=== PATIENT | female | born 1945 | race Caucasian/White ===

== ENCOUNTER 2018-04-20 10:56 | Emergency (ER) | payer OTHER ==
[2018-04-20] MEDS ORDERED: NA CHLORIDE 0.9% 1,000 ML ONE (11:10)
--- NOTE | 2018-04-20 11:14 | EDPHYS ---
Physician Documentation [facility] Name: Tennille Rey Age: 72 yrs Sex: Female : 1945 Arrival Date: 04/20/2018 Time: 10:57 Bed 3 Private MD: ED Physician Collins Bojorquez HPI: 04/20 11:09 This 72 yrs old Female presents to ER via Wheelchair with complaints of anirudh Headache - Abnormal MRI. 11:09 The patient complains of pain to the forehead, left frontal area, left temporal area, anirudh right frontal area and right temporal area. The patient describes the headache as constant, a pressure. Onset: The symptoms/episode began/occurred 14 day(s) ago. Associated signs and symptoms: The patient has no apparent associated signs or symptoms. Severity of symptoms: At its worst the pain was mild, moderate, in the emergency department the pain is unchanged. Headache History: Denies prior headaches. The symptoms are alleviated by nothing. the symptoms are aggravated by nothing. The patient has not experienced similar symptoms in the past, but family has similar symptoms, but friend has similar symptoms. Historical: - Allergies: 11:04 Codeine; iw - Home Meds: 11:04 Omeprazole Oral [Active]; elavil [Active]; statin [Active]; iw - PSHx: 11:04 breast augmentation; Appendectomy; ; Bladder suspension; iw - Immunization history:: Adult Immunizations unknown. - Ebola Screening: : Patient negative for fever greater than or equal to 101.5 degrees Fahrenheit, and additional compatible Ebola Virus Disease symptoms Patient denies exposure to infectious person Patient denies travel to an Ebola-affected area in the 21 days before illness onset No symptoms or risks identified at this time. - Family history:: not pertinent. - Social history:: Smoking status: Patient/guardian denies using tobacco. ROS: 11:09 Constitutional: Negative for fever, chills, and weight loss, Eyes: Negative for injury, anirudh pain, redness, and discharge, ENT: Negative for injury, pain, and discharge, Neck: Negative for injury, pain, and swelling, Cardiovascular: Negative for chest pain, palpitations, and edema, Respiratory: Negative for shortness of breath, cough, wheezing, and pleuritic chest pain, Abdomen/GI: Negative for abdominal pain, nausea, vomiting, diarrhea, and constipation, Back: Negative for injury and pain, : Negative for injury, bleeding, discharge, and swelling, MS/Extremity: Negative for injury and deformity, Skin: Negative for injury, rash, and discoloration, Neuro: Negative for headache, weakness, numbness, tingling, and seizure, Psych: Negative for depression, anxiety, suicide ideation, homicidal ideation, and hallucinations, Allergy/Immunology: Negative for hives, rash, and allergies, Endocrine: Negative for neck swelling, polydipsia, polyuria, polyphagia, and marked weight changes, Hematologic/Lymphatic: Negative for swollen nodes, abnormal bleeding, and unusual bruising. 11:12 Neuro: Positive for weakness, of the left leg. anirudh Exam: 11:09 Constitutional: This is a well developed, well nourished patient who is awake, alert, anirudh and in no acute distress. Head/Face: Normocephalic, atraumatic. Eyes: Pupils equal round and reactive to light, extra-ocular motions intact. Lids and lashes normal. Conjunctiva and sclera are non-icteric and not injected. Cornea within normal limits. Periorbital areas with no swelling, redness, or edema. ENT: Nares patent. No nasal discharge, no septal abnormalities noted. Tympanic membranes are normal and external auditory canals are clear. Oropharynx with no redness, swelling, or masses, exudates, or evidence of obstruction, uvula midline. Mucous membranes moist. Neck: Trachea midline, no thyromegaly or masses palpated, and no cervical lymphadenopathy. Supple, full range of motion without nuchal rigidity, or vertebral point tenderness. No Meningismus. Chest/axilla: Normal chest wall appearance and motion. Nontender with no deformity. No lesions are appreciated. Cardiovascular: Regular rate and rhythm with a normal S1 and S2. No gallops, murmurs, or rubs. Normal PMI, no JVD. No pulse deficits. Respiratory: Lungs have equal breath sounds bilaterally, clear to auscultation and percussion. No rales, rhonchi or wheezes noted. No increased work of breathing, no retractions or nasal flaring. Abdomen/GI: Soft, non-tender, with normal bowel sounds. No distension or tympany. No guarding or rebound. No evidence of tenderness throughout. Back: No spinal tenderness. No costovertebral tenderness. Full range of motion. Skin: Warm, dry with normal turgor. Normal color with no rashes, no lesions, and no evidence of cellulitis. MS/ Extremity: Pulses equal, no cyanosis. Neurovascular intact. Full, normal range of motion. Neuro: Awake and alert, GCS 15, oriented to person, place, time, and situation. Cranial nerves II-XII grossly intact. Motor strength 5/5 in all extremities. Sensory grossly intact. Cerebellar exam normal. Normal gait. Psych: Awake, alert, with orientation to person, place and time. Behavior, mood, and affect are within normal limits. 11:12 Radiologist reports: see mri report [facility] Vital Signs: 11:01 BP 131 / 84; Pulse 85; Resp 16 S; Temp 98.2; Pulse Ox 97% ; iw 11:26 BP 128 / 81; Pulse 79; Resp 16; Pulse Ox 98% on R/A; hb 12:25 BP 121 / 68; Pulse 72; Resp 18; Pulse Ox 99% on R/A; ph 14:00 BP 122 / 64; Pulse 73; Resp 18; Temp 97.8; Pulse Ox 98% on R/A; ph MDM: 10:57 Patient medically screened. [facility] 04/20 10:59 Order name: Basic Metabolic Panel; Complete Time: 12:26 [facility] 04/20 10:59 Order name: BNP; Complete Time: 12:26 [facility] 04/20 10:59 Order name: CBC with Diff; Complete Time: 12:26 [facility] 04/20 10:59 Order name: Ckmb; Complete Time: 12:26 [facility] 04/20 10:59 Order name: CPK; Complete Time: 12:26 [facility] 04/20 10:59 Order name: LFT's; Complete Time: 12:26 [facility] 04/20 10:59 Order name: Magnesium; Complete Time: 12:26 [facility] 04/20 10:59 Order name: PT-INR; Complete Time: 12:26 [facility] 04/20 10:59 Order name: Ptt, Activated; Complete Time: 12:26 [facility] 04/20 10:59 Order name: Troponin (emerg Dept Use Only); Complete Time: 12:26 [facility] 04/20 10:59 Order name: XRAY Chest (1 view); Complete Time: 12:26 [facility] 04/20 10:59 Order name: EKG; Complete Time: 11:00 [facility] 04/20 10:59 Order name: Cardiac monitoring; Complete Time: 11:16 [facility] 04/20 10:59 Order name: EKG - Nurse/Tech; Complete Time: 11:16 [facility] 04/20 10:59 Order name: IV Saline Lock; Complete Time: : [facility] 04/20 10:59 Order name: Labs collected and sent; Complete Time: 11: [facility] 04/20 10:59 Order name: O2 Per Protocol; Complete Time: : [facility] 04/20 10:59 Order name: O2 Sat Monitoring; Complete Time: : [facility] 04/20 10:59 Order name: NPO; Complete Time: 12:23 anirudh Administered Medications: 11:11 Drug: NS 0.9% 1000 ml Route: IV; Rate: 125 ml/hr; Site: left antecubital; hb 11:40 Drug: Keppra 1000 mg Route: IV; Rate: per protocol; Site: left antecubital; ph Disposition: 04/20/18 11:[address] [facility]. Diagnosis are Headache, Traumatic subdural hemorrhage - 2.4 cm thick, 1.2 cm shift. - Reason for transfer: Higher level of care. - Accepting physician is to [facility] neuro icu. - Condition is Stable. - Problem is new. - Symptoms have improved. Signatures: Dispatcher [employer] EDCollins Barrett MD MD cha Williams, Irene, RN GUSTAVO Sonal Alarcon RN RN ph Baxter, Heather, RN RN Corrections: (The following items were deleted from the chart) 14:52 11:14 04/20/2018 11:[address] [facility]. Diagnosis is ph Headache; Traumatic subdural hemorrhage - 2.4 cm thick, 1.2 cm shift. Reason for transfer: Higher level of care. Accepting physician is to [facility] neuro icu. Condition is Stable. Problem is new. Symptoms have improved. anirudh
--- NOTE | 2018-04-20 11:14 | ER ---
Nurse's Notes [facility] Name: Tennille Rey Age: 72 yrs Sex: Female : 1945 Arrival Date: 04/20/2018 Time: 10:57 Bed 3 Private MD: Diagnosis: Headache;Traumatic subdural hemorrhage-2.4 cm thick, 1.2 cm shift Presentation: 04/20 10:58 Presenting complaint: Patient states: had MRI today, s/p fall one month ago, end of iw February, pt has had headaches and difficulty walking since then, MRI subdural hematoma with 1.2 cm right to left shift. Transition of care: patient was not received from another setting of care. Onset of symptoms was February 2018. Risk Assessment: Do you want to hurt yourself or someone else? Patient reports no desire to harm self or others. Initial Sepsis Screen: Does the patient meet any 2 criteria? No. Patient's initial sepsis screen is negative. Does the patient have a suspected source of infection? No. Patient's initial sepsis screen is negative. Care prior to arrival: None. 10:58 Method Of Arrival: Wheelchair iw 10:58 Acuity: ADRIÁN 2 iw Triage Assessment: 19:29 Pain: Also complains of. ph Historical: - Allergies: 11:04 Codeine; iw - Home Meds: 11:04 Omeprazole Oral [Active]; elavil [Active]; statin [Active]; iw - PSHx: 11:04 breast augmentation; Appendectomy; ; Bladder suspension; iw - Immunization history:: Adult Immunizations unknown. - Ebola Screening: : Patient negative for fever greater than or equal to 101.5 degrees Fahrenheit, and additional compatible Ebola Virus Disease symptoms Patient denies exposure to infectious person Patient denies travel to an Ebola-affected area in the 21 days before illness onset No symptoms or risks identified at this time. - Family history:: not pertinent. - Social history:: Smoking status: Patient/guardian denies using tobacco. Screenin:18 Abuse screen: Denies threats or abuse. Denies injuries from another. Nutritional hb screening: No deficits noted. Tuberculosis screening: No symptoms or risk factors identified. Fall Risk None identified. Assessment: 11:15 General: Appears in no apparent distress. comfortable, slender, well groomed, Behavior ph is calm, cooperative, appropriate for age, Reports States, " I fell in February and I came here for an MRI because the CT they did recently didn't get my neck. I haven't been feeling bad, I've had a dull headache and I noticed a few days ago that I had some trouble picking up my left leg to put on my slacks but that's all that's been different.". Pain: Complains of pain in head Pain currently is 2 out of 10 on a pain scale. Neuro: Level of Consciousness is awake, alert, obeys commands, Oriented to person, place, time, situation, Mechanic Welder are equal bilaterally Moves all extremities. Full function Gait is steady, Speech is normal, Facial symmetry appears normal, Facial symmetry: tongue is midline, Pupils are PERRLA, Intact Reports headache Denies blurred vision dizziness, difficulty swallowing, diplopia. Cardiovascular: Capillary refill < 3 seconds in bilateral fingers Patient's skin is warm and dry. Respiratory: Airway is patent Respiratory effort is even, unlabored, Denies cough, shortness of breath. GI: Patient currently denies diarrhea, nausea, vomiting. Derm: Skin is intact, is healthy with good turgor, Skin is pink, warm \\T\\ dry. Musculoskeletal: Circulation, motion, and sensation intact. Range of motion: intact in all extremities. 13:10 Reassessment: Patient appears in no apparent distress at this time. Patient and/or ph family updated on plan of care and expected duration. Pain level reassessed. Patient is alert, oriented x 3, equal unlabored respirations, skin warm/dry/pink. Pt resting quietly, awaiting transfer. 13:34 Reassessment: Patient appears in no apparent distress at this time. Patient and/or ph family updated on plan of care and expected duration. Pain level reassessed. Patient is alert, oriented x 3, equal unlabored respirations, skin warm/dry/pink. Report called to Jazmine CHEN at [facility] waiting EMS for transport. Vital Signs: 11:01 BP 131 / 84; Pulse 85; Resp 16 S; Temp 98.2; Pulse Ox 97% ; iw 11:26 BP 128 / 81; Pulse 79; Resp 16; Pulse Ox 98% on R/A; hb 12:25 BP 121 / 68; Pulse 72; Resp 18; Pulse Ox 99% on R/A; ph 14:00 BP 122 / 64; Pulse 73; Resp 18; Temp 97.8; Pulse Ox 98% on R/A; ph ED Course: 10:57 Patient arrived in ED. iw 10:57 Collins Bojorquez MD is Attending Physician. anirudh 11:00 Triage completed. iw 11:02 EKG done, by technical writing lead/mgr. reviewed by Collins Bojorquez MD. at1 11:05 Arm band placed on. hb 11:15 Initial lab(s) drawn, by me, sent to lab. Inserted saline lock: 20 gauge in left ph antecubital area, using aseptic technique. Blood collected. 11:36 X-ray completed. Portable x-ray completed in exam room. Patient tolerated procedure sw well. 11:39 XRAY Chest (1 view) In Process Unspecified. EDMS 12:19 Sonal Alarcon, RN is Primary Nurse. ph 12:25 Patient has correct armband on for positive identification. Placed in gown. Bed in low ph position. Call light in reach. Side rails up X 1. engine monitor on. Pulse ox on. NIBP on. Warm blanket given. 13:35 No provider procedures requiring assistance completed. Patient transferred, IV remains ph in place. Administered Medications: 11:11 Drug: NS 0.9% 1000 ml Route: IV; Rate: 125 ml/hr; Site: left antecubital; hb 11:40 Drug: Keppra 1000 mg Route: IV; Rate: per protocol; Site: left antecubital; ph Outcome: 11:14 ER care complete, transfer ordered by . anirudh 13:35 Transferred by ground EMS to [facility], Transfer form completed. X-rays ph sent w/ patient. 13:35 Condition: stable 13:35 Instructed on the need for transfer. 14:52 Patient left the ED. ph Signatures: Dispatcher [employer] EDMS Collins Bojorquez MD MD cha Williams, Irene, RN RN iw Zulma garrido, medical supply technician EKG Tat1 Sonal Alarcon, GUSTAVO CHEN Lilia Sweeney Heather, GUSTAVO RN hb Corrections: (The following items were deleted from the chart) 11:08 11:01 BP 131 / 84; Resp 16bpm; Spontaneous; iw iw
[2018-04-20] MEDS ORDERED: levETIRAcetam 1,000 MG in NA CHLORIDE 0.9% 100 ML IV ONE (11:15)
[2018-04-20 11:25] LABS: Absolute Lymphocytes (CBC) 1.8 K/uL (0.7-4.9); Absolute Monocytes 0.7 K/uL (0.1-1.3); Absolute Neutrophil 4.4 K/uL (1.8-8.0); Basophils % 0.8 % (0-1.3); Eosinophils % 4.6 % (0-4.4); Lymphocytes % 25.1 % (15.3-44.8); MCH 29.5 pg (27.0-35.0); MCV 90.9 fL (80-100); Monocytes % 9.3 % (3.3-12.3)
[2018-04-20 11:29] LABS: Protime INR 0.97
[2018-04-20 11:36] LABS: Bicarbonate 27 mEq/L (21-31); Glucose Level 107 mg/dL (65-120); Potassium 3.9 mEq/L (3.6-5.0); Sodium Level 140 mEq/L (135-145)
[2018-04-20 11:43] LABS: ALT/SGPT 20 IU/L (10-60); AST/SGOT 24 IU/L (10-42); Albumin 4.2 g/dL (3.2-5.5); Alkaline Phosphatase 51 IU/L (42-121); BUN Blood Urea Nitrogen 20 mg/dL (6-20); Bilirubin Direct 0.1 mg/dL (0-0.2); Bilirubin Total 0.4 mg/dL (0.3-1.2); Creatine Phosphokinase 103 IU/L (22-269); Magnesium 1.8 mg/dL (1.8-2.5); Protein, Total 7.4 g/dL (6.0-8.3)
[2018-04-20 11:45] LABS: CKMB Creatine Kinase MB 1.4 ng/ml (0.3-4.0)
--- NOTE | 2018-04-20 11:46 | RAD REPORT ---
EXAM DESCRIPTION: RAD - Chest Single View - 04/20/2018 11:41 am CLINICAL HISTORY: Chest pain. COMPARISON: None. FINDINGS: Portable technique limits examination quality. The lungs are grossly clear. The heart is normal in size. No displaced fractures.Mildly tortuous thor acic aorta. IMPRESSION: No acute intrathoracic process suspected.
--- NOTE | 2018-04-20 13:19 | EKG ---
Test Date: 2018-04-20 Test Time: 10:57:43 Vice President Of Procurement: ARLIN MEASUREMENT RESULTS: Intervals: Rate: 82 NV: 134 QRSD: 92 QT: 366 QTc: 427 Trezevant: P: 51 NV: 134 QRS: -52 T: 47 INTERPRETIVE STATEMENTS: Normal sinus rhythm Left anterior fascicular block Abnormal ECG No previous ECG available for comparison Electronically Signed On 04-20-18 13:18:56 CDT by Kevin Ruano
== END 2018-04-20 14:52 | disposition short-term general hospital (02) ==
LOC: ER 10:56
DX: S06.5X9A Traumatic subdural hemorrhage with loss of consciousness of unspecified duration, initial encounter (principal); Z88.6 Allergy status to analgesic agent; X58.XXXA Exposure to other specified factors, initial encounter; Y93.9 Activity, unspecified; Y92.9 Unspecified place or not applicable; Y99.9 Unspecified external cause status
CPT/HCPCS: 36415; 71045; 80048; 80076; 82550; 82553; 83735; 83880; 84484; 85025; 85610; 85730; 93005; 96374; 99285; J1953; J7030

== ENCOUNTER 2020-06-30 19:17 | Emergency (ER) | payer OTHER ==
--- OUTSIDE RECORDS SUMMARY | 2020-06-30 19:21 | XMS REPORT | Continuity of Care Document ---
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 Active 04/20/[address] [id number] Active 09/19/20 UPTURED IMPLANT 14 Trip [facility] Gastroesophageal Active Problem 01/28/2019 [place] reflux disease Neuro , (disorder) [facility] [facility] Medications Medication Details Route Status Patient Ordering Order Source Instructions Provider Date Physical Therapy See Active David s Instructions, 2018 Medical [facility], ONCALL, Center Evaluate and Treat 3 times per week for 6 weeks, # 18 ea, 0 Refill(s) Levetiracetam 500 mg = 1 tab, Active 04/23[facility] [place] 500 MG Oral PO, BID, # 14 2018 Medica l Tablet [Keppra] tab, 0 Refill(s) [place] tramadol 50 mg = 1 tab, Active 04/23[facility] hydrochloride 50 PO, Q6H, PRN 2018 Me dical MG Oral Tablet Pain Score 4-6, C enter X 4 day, # 16 tab, 0 Refill(s) Compazine Notes: (Same as: No Longer [facility] Compazine) Active [address] [place] [address] omeprazole 40 mg TAKE 1 CAPSULE Active 04/22[facility] oral delayed BY MOUTH ONCE A 2018 Med ical release capsule DAY 30 MINS Cent er BEFORE MEALS MUST MAKE APPT FOR MORE REFILLS atorvastatin 10 TAKE 1 TABLET BY Active 04/22[facility] mg oral tablet MOUTH DAILY 2018 Medic al [place] amitriptyline 25 TAKE 1 TABLET BY Active 04/22[facility] mg oral tablet MOUTH EVERYDAY 2018 Me dical AT BEDTIME [place] heparin sodium, Notes: porcine No Longer [facility] porcine 2500 heparin Active 2018 [facility] UNT/ML Center Injectable Solution atorvastatin Notes: (Same As: No Longer [facility] Lipitor) Active 2018 Medical [place] remove patch Notes: Remove No Longer [facility] patch 12 hours Active 2018 Medical after Center application each day. Phenergan Notes: Do not [place] give IV push. 2018 Medical (Same as: [place] Phenergan) Phenergan Notes: Do not Inactive [place] give IV push. 2018 Medical (Same as: [place] Phenergan) Lidocaine Notes: Apply [place] Longer [place] Hydrochloride only once for up Active 2017 edical 0.05 MG/MG to 12 hours in a Cent er Transdermal 24-hour period Patch [Lidoderm] (12 hours on and 12 hours off). (Same as: Lidoderm) "Remove old patch before application of new patch" Acetaminophen Notes: [place] acetaminophen Active 2018 Medical 4000 mg/day (4 Center gm/day). (Same as: Tylenol Extra Strength) Tramadol Notes: Not to [place]er [place] exceed Active 2018 Medical 400mg/day. (Same Center As: [facility]) Ondansetron Notes: (Same as: No Longer [facility] Zofran) Active 2018 Medical MEDICATION WASTE Center Product Size: 4 mg Product Wasted: ___ mg pantoprazole Notes: Tablet No Longer [facility] should not be Active 2018 [facility] chewed or [place] crushed. (Same as: Protonix) Zofran Notes: (Same as: Inactive [place] Zofran) 2018 Medical MEDICATION WASTE Center Product Size: 4 mg Product Wasted: 0 mg Fentanyl Notes: (Same as: [place] Longer [place] Sublimaze) Active 2018 [facility] Preservative Center free. Saline Flush Notes: (Same as: No Longer [facility] 0.9% BD Posiflush) Active 2018 Medical [place] sennosides, LONGTERM Notes: (Same as: No Longer 04/21 [facility] Senokot) Active 2018 Medical Center Famotidine 20 mg, Route: Inactive 04/21[facility] [place] IVP, Q12H, 2018 Medical Dosing Weight Center 65.909, kg, Start date: 04/20/18 21:00:00 CDT, Duration: 30 day, Stop date: 05/20/18 9:00:00 CDT Docusate Notes: (Same as: [place] Longer [place] Colace) (Do Not Active 2018 [facility]) Center Ondansetron 4 mg, Route: Inactive 04/21[facility] [place] IVP, ONCE, 2018 Medical Dosing Weight Center 68.182, kg, PRN Nausea & Vomiting, Start date: 04/20/18 20:23:00 CDT Flumazenil 0.2 mg, Route: Inactive 04/21[facility] [place] IVP, PRN, Dosing 2018 Medical Weight 68.182, Center kg, PRN Benzodiazepine Reversal, Initial dose, Start date: 04/20/18 20:23:00 CDT, Duration: 30 day, Stop date: 05/20/18 20:22:00 CDT Naloxone 0.4 mg, Route: Inactive 04/21[facility] [place] IVP, Q2MIN, 2018 Medical Dosing Weight Center 68.182, kg, PRN Narcotic Reversal, Start date: 04/20/18 20:23:00 CDT, Duration: 8 doses or times, Stop date: Limited # of times Fentanyl 25 microgram, Inactive 04/21[facility] Route: IVP, 2018 Medical Q5Min, Dosing Center Weight 68.182, kg, PRN Pain Score 4-6, Priority: Routine, Start date: 04/20/18 20:23:00 CDT, Duration: 4 doses or times, Stop date: Limited # of times glycopyrrolate Route: IV, Drug Inactive 04/21[facility] (ANES) form: INJ, ONCE, 2018 Medical Stop date: [place] 04/20/18 20:11:00 CDT ondansetron Route: IV, Drug Inactive [address] [place] [address] (ANES) form: INJ, ONCE, 2018 Medical Stop date: [place] 04/20/18 20:11:00 CDT neostigmine Route: IV, Drug Inactive [address] [place] [address] (ANES) form: INJ, ONCE, 2018 Medical Stop date: [place] 04/20/18 20:11:00 CDT Ancef Notes: (Same as No Longer [place] Ancef) Active 2018 Medical Center [place] Notes: (Same as: No Longer Timothy miguel Gastelum) Active 2018 Medical MEDICATION WASTE Center Product Size: 4 mg Product Wasted: ___ mg Acetaminophen Notes: Same as No Longer [facility] [place] 325 MG / [place] 325-7.5mg Active 2018 Medical Hydrocodone Do not exceed Cente r Bitartrate 7.5 4gm/day of MG Oral Tablet acetaminophen. [[place] 7.5/325] Labetalol 20 mg, 4 mL, No Longer [place] Route: IVP, Drug Active 2017 Medical form: INJ, [place] Q15Min, Dosing Weight 68.182, kg, PRN Hypertension, Start date: 04/20/18 19:59:00 CDT, Duration: 3 doses or times, Stop date: Limited # of times Hydralazine Notes: (Same as: No Longer [facility] Apresoline) Push Active 2018 Medical over 5 minutes [place] lidocaine (ANES) Route: IV, Drug Inactive [facility] form: INJ, ONCE, 2017 Medical Stop date: [place] 04/20/18 19:47:00 CDT rocuronium Route: IV, Drug Inactive [place] (ANES) form: INJ, ONCE, 2017 Medical Stop date: [place] 04/20/18 19:42:00 CDT propofol (ANES) Route: IV, Drug Inactive 04/21/ [facility] form: INJ, ONCE, 2017 Medical Stop date: [place] 04/20/18 19:42:00 CDT fentaNYL (ANES) Route: IV, Drug Inactive 04/21/ [facility] form: INJ, ONCE, 2017 Medical Stop date: [place] 04/20/18 19:42:00 CDT ceFAZolin (ANES) Route: IV, Drug Inactive 04/21/ [facility] form: INJ, ONCE, 2017 Medical Stop date: [place] 04/20/18 19:22:00 CDT propofol (ANES) Route: IV, Drug Inactive [place] 10 mg form: INJ, Start 2018 Medical date: 04/20/18 [place] 19:08:00 CDT, Stop date: 04/20/18 20:08:00 CDT levETIRAcetam Route: IV, Drug Inactive [place] (ANES) 100 mg form: INJ, Start 2017 M edical date: 04/20/18 [place] 18:55:00 CDT, Stop date: 04/20/18 19:55:00 CDT Isolyte S PH 7.4 Route: IV, Total Inactive 04/20 [place] (ANES) 1000 mL Volume: 1,000, 2017 Me dical Start date: [place] 04/20/18 18:28:00 CDT, Stop date: 04/20/18 19:28:00 CDT Sodium Chloride Route: IV, Total Inactive [place] 0.9% IV (ANES) Volume: 1,000, 2017 Me dical 1000 mL Start date: [place] 04/20/18 18:25:00 CDT, Stop date: 04/20/18 19:25:00 CDT Streptococcus Notes: Shake No Longer [place] pneumoniae well prior to Active 2018 Medical serotype 1 use (Same as: [place] capsular antigen Prevnar 13) diphtheria [id number] protein conjugate vaccine / Streptococcus pneumoniae serotype 14 capsular antigen diphtheria [id number] protein conjugate vaccine / Streptococcus pneumoniae serotype 18C capsular antigen d normal saline 1,000 mL, Rate: No Longer [place] 0.9% IV 1,000 mL 75 ml/hr, Infuse Active 2017 Medical over: 13.3 hr, [place] Route: IV, Dosing Weight 65.909 kg, Total Volume: 1,000, Start date: 04/20/18 15:45:00 CDT, Duration: 30 day, Stop date: 05/20/18 15:44:00 CDT, 1.73, m2 Dextrose 50% 12.5 gm, 25 mL, No Longer [place] Syringe Route: IVP, Drug Active 2017 Medical Form: INJ, [place] Dosing Weight 65.909, kg, PRN, PRN Abnormal Lab Result, Start date: 04/20/18 15:44:00 CDT, Duration: 30 day, Stop date: 05/20/18 15:43:00 CDT Regular Insulin, 60 units) No Longer [place] Human 100 UNT/ML WASTE: F/P - Active 2018 Me dical Injectable Black; E - Center Solution Municipal Trash Bin Stable for 28 days at room temperature Expires in days from Da te Calcium Notes: (Same As: [place] Long[place] Carbonate 500 MG Tums) Calcium Active 2017 M edical Chewable Tablet Carbonate 500 mg Center = 200 mg elemental calcium Dose = mg calcium carbonate ( mg elemental calcium) Calcium Notes: WASTE: No Longer [facility] Gluconate F/P - Sink; E - Active 2018 Medica l [facility] Bin potassium Notes: (Same as: No Longer [facility] phosphate-sodium Phos-NaK) Each Active 2018 Medical phosphate 250 1.5 gm pkt has [address] mg-280 mg-160 mg 250mg oral powder for phosphorous. Mix reconstitution w/2.5oz water and stir. Magnesium Notes: WASTE: No Longer [place] Sulfate F/P - Sink; E - Active 2018 Medical [facility] Bin Magnesium Oxide Notes: (Same as: No Longer 04/20 [facility] Mag-Ox 400) Active 2018 [facility] Magnesium oxide [place] [id number] elemental magnesium Dose=____mg magnesium oxide (___mg elemental magnesium) sodium phosphate 15 mmol, 5 mL, No Longer [facility] Route: IVPB, Active 2018 Medical PRN, Dosing Center Weight 65.909, kg, PRN Abnormal Lab Result, Start date: 04/20/18 15:43:00 CDT, Duration: 30 day, Stop date: 05/20/18 15:42:00 CDT, FOR ICU USE ONLY Potassium Notes: (Same as: No Longer [facility] Chloride K-Dur 20) "Do Active 2018 Medical Not Crush" For Center patients unable to swallow tablet, dissolve in one half glass of water. Allow about 2 minutes for the tablets to disintegrate. Stir before giving to prepare slurry and administer. Please exclude Patients with feeding tube less than 14 Citizen Of [place] (Dobhoff, J-tube etc) and pediatric and patients. With food and full glass of water potassium Notes: (Same as: No Longer [facility] phosphate K Phosphate.) 1 Active 2017 Medic al mMol phoshate Center has 1.47 mEq potassium Infuse over 4 hours Saline Flush Notes: (Same as: No Longer [place] 0.9% BD Posiflush) Active 2018 [facility] Acetaminophen Notes: Do not No Longer [facility] exceed 4 gm/day. Active 2018 Medical (Same as: Center Tylenol) Exparel Notes: (Same as: Inactive Exparel) 2013 [facility] FOR IV [place] use Postoperative analgesia: Infiltration (local): Dose is based on surgical site and volume required to cover the area (in general, the maximum total dose is 266 mg). Bunionectomy: 7 mL into the tissues surrounding the osteotomy and 1 mL into the subcutaneous tissue of the surgical site (total dose = 8 mL [106 mg]) Hemorrhoidectomy : 30 mL (20 mL vial diluted with 10 mL NS) divided and administered as 6 injections of 5 mL each (total dose = 30 mL [266 mg]) Ondansetron Notes: (Same as: Inactive Zofran) 2013 [facility] Naloxone Notes: Same as Inactive Narcan 2013 [facility] Flumazenil Notes: (Same as: Inactive Romazicon) 2013 [facility] Morphine Notes: (Same Inactive as:MORPhine 2013 [facility] ceFAZolin Notes: Same as: Inactive Ancef 2013 [facility] Ocuvite 0 Refill(s) Active 2013 [facility] Citracal Maximum 0 Refill(s) Active + D 2013 [facility] Vitamin D 0 Refill(s) Active 2013 [facility] Centrum Silver 0 Refill(s) Active Ultra Women's 2013 [facility] Raloxifene 60 mg = 1 tab, Active Hydrochloride 60 PO, Daily, # 90 2013 [facility] MG Oral Tablet tab, 0 Refill(s) [facility] [[place]] omeprazole 20 mg 20 mg = 1 tab, Active oral enteric PO, Daily, # 30 2013 Mem orial coated tablet tab, 0 Refill(s) C ity Allergies, Adverse Reactions, Alerts Substance Category Reaction Severity Reaction Status Date Comments S ource type Reported codeine Assertion Drug Active Mische r allergy Neuro Immunizations No Data Provided for This Section Results Order Name Results Value Reference Date Interpretation Comments Mansi rce Range CARDIAC Total CK 62 12 - 191 04/22 [facility] ENZYMES [facility] CHEM PANEL Phosphorus 2.1 2.5 - 4.5 04/22 [facility]2017 [facility] CHEM PANEL Magnesium 2.3 1.8 - 2.4 04/22 [facility] ELECTROLYTE AGAP 13.6 10.0 - 04/22 [facility] S 20.0 [facility] ELECTROLYTE eGFR 93 04/22 Result [facility] Comment: The Medical eGFR is Center calculated using the CKD-EPI formula. In most young, healthy individuals the eGFR will be >90 mL/min/1.73m2 . The eGFR declines with age. An eGFR of 60-89 may be normal in some populations, particularly the elderly, for whom the CKD-EPI formula has not been extensively validated. Use of the eGFR is not recommended in the following populations:< br/>
Therese viduals with unstable creatinine concentration s, including patients and those with serious co-morbid conditions.<b r/>
Patie nts with extremes in muscle mass or diet.

The data above are obtained from the National Kidney Disease Education Program (NKDEP) which additionally recommends that when the eGFR is used in patients with extremes of body mass index for purposes of drug dosing, the eGFR should be multiplied by the estimated BMI. ELECTROLYTE Calcium Lvl 8.2 8.5 - 10.5 04/22 [place] [facility] ELECTROLYTE Creatinine 0.59 0.50 - 04/22 [facility] S Lvl 1.40 [facility] ELECTROLYTE BUN 16 7 - 22 04/22 [facility]2017 [facility] ELECTROLYTE Glucose Lvl 126 70 - 99 04/22 [facility] ELECTROLYTE CO2 23 24 - 32 04/22 [facility]2017 [facility] ELECTROLYTE Chloride Lvl 106 95 - 109 04/22 [place] as [facility] ELECTROLYTE Sodium Lvl 139 135 - 145 04/22 [place] [facility] ELECTROLYTE Potassium 3.6 3.5 - 5.1 04/22 [facility] [place] [facility] /2017 [facility] HEMATOLOGY MPV 8.5 7.4 - 10.4 06 [facility] HEMATOLOGY Platelet 258 133 - 450 06/ [facility] HEMATOLOGY RDW 14.0 11.5 - 06 [facility] 14.5 /2017 [facility] HEMATOLOGY MCH 30.2 27.0 - 04/22 [place] 31.0 /2017 [facility] HEMATOLOGY MCHC 33.7 32.0 - 04/22 [place] 36.0 [facility] HEMATOLOGY WBC 12.6 3.7 - 10.4 04/22 [facility] HEMATOLOGY RBC 4.35 4.20 - 04/22 [place] 5.40 /2017 [facility] HEMATOLOGY Hgb 13.1 12.0 - 04/22 [place] 16.0 [facility] HEMATOLOGY Hct 39.0 36.0 - 04/22 [facility] 48.0 [facility] HEMATOLOGY MCV 89.6 80.0 - 04/22 [facility] 98.0 [facility] HEMATOLOGY Basophils # 0.1 0.0 - 0.2 04/22 [facility] s [facility] HEMATOLOGY Segs-Bands # 9.7 1.5 - 8.1 04/22 [facility] as /2017 [facility] HEMATOLOGY Lymphocytes 1.5 1.0 - 5.5 04/22 [facility] s # /2017 [facility] HEMATOLOGY Monocytes # 1.2 0.0 - 0.8 04/22 [facility] s [facility] HEMATOLOGY Segs 77.3 45.0 - 04/22 [facility] 75.0 [facility] HEMATOLOGY Eosinophils 0.4 0.0 - 4.0 04/22 [facility] s [facility] HEMATOLOGY Monocytes 9.5 2.0 - 12.0 04/22 [facility] HEMATOLOGY Basophils 0.5 0.0 - 1.0 04/22 [facility] HEMATOLOGY Lymphocytes 12.3 20.0 - 04/22 [place] 40.0 [facility] PARATHYROID Ca Ion WB 0.98 1.05 - 04/22 [place] PROFILE 1. [facility] PARATHYROID Ca Norm WB 0.99 1.05 - 04/22 [facility] PROFILE . [facility] CARDIAC CK MB Index 1.0 0.0 - 2.5 06/ [facility] ENZYMES /2017 [facility] CARDIAC CK MB 0.8 0.5 - 3.6 04/21 [facility] ENZYMES /2017 [facility] CARDIAC Troponin-T <0.010 0.000 - 06 [facility] ENZYMES 0.100 /2017 [facility] CARDIAC Troponin-I <0.02 0.00 - 04/21 [facility] ENZYMES 0.40 /2017 [facility] CARDIAC Total CK 82 12 - 191 04/21 [facility] CHEM PANEL Phosphorus 2.8 2.5 - 4.5 04/21 [facility] CHEM PANEL eGFR 98 04/21 Result Comment: The Medical eGFR is Center calculated using the CKD-EPI formula. In most young, healthy individuals the eGFR will be >90 mL/min/1.73m2 . The eGFR declines with age. An eGFR of 60-89 may be normal in some populations, particularly the elderly, for whom the CKD-EPI formula has not been extensively validated. Use of the eGFR is not recommended in the following populations:< br/>
Therese viduals with unstable creatinine concentration s, including patients and those with serious co-morbid conditions.<b r/>
Patie nts with extremes in muscle mass or diet.

The data above are obtained from the National Kidney Disease Education Program (NKDEP) which additionally recommends that when the eGFR is used in patients with extremes of body mass index for purposes of drug dosing, the eGFR should be multiplied by the estimated BMI. CHEM PANEL Sodium Lvl 142 135 - 145 04/21 [facility] CHEM PANEL Creatinine 0.50 0.50 - 04/21 [facility] 1.40 [facility] CHEM PANEL BUN 13 7 - 22 04/21 [facility] CHEM PANEL Calcium Lvl 8.0 8.5 - 10.5 04/21 [place] as [facility] CHEM PANEL AGAP 13.5 10.0 - 06/05 [facility] 20.0 [facility] CHEM PANEL Potassium 3.5 3.5 - 5.1 04/21 [facility] CHEM PANEL Chloride Lvl 110 95 - 109 04/21 [facility] s [facility] CHEM PANEL CO2 22 24 - 32 04/21 [facility]2017 [facility] CHEM PANEL Glucose Lvl 110 70 - 99 04/21 [facility]2017 [facility] CHEM PANEL Magnesium 1.8 1.8 - 2.4 04/21 [facility] HEMATOLOGY Eosinophils 0.1 0.0 - 0.5 06/05 [place] # /2018 Medical Center HEMATOLOGY Monocytes # 0.7 0.0 - 0.8 06/05 [place] /2017 [facility] HEMATOLOGY Lymphocytes 0.8 1.0 - 5.5 06/05 [place] # /2017 [facility] HEMATOLOGY Segs-Bands # 9.3 1.5 - 8.1 06/05 [place] /2017 [facility] HEMATOLOGY Basophils 0.4 0.0 - 1.0 06/05 [facility] HEMATOLOGY Segs 84.2 45.0 - 06/05 [place] 75.0 /2018 [facility] HEMATOLOGY Lymphocytes 7.5 20.0 - 06/05 [place] 40.0 2018 [facility] HEMATOLOGY Eosinophils 1.2 0.0 - 4.0 06/05 [place] /2017 [facility] HEMATOLOGY Monocytes 6.7 2.0 - 12.0 06/05 [facility] HEMATOLOGY PTT 27.8 22.9 - 06/05 [place] 35.8 /2018 [facility] HEMATOLOGY PT 13.7 12.0 - 06/05 [place] 14.7 /2017 [facility] HEMATOLOGY INR 1.05 0.85 - 06/05 [place] 1.17 [facility] HEMATOLOGY MCH 29.9 27.0 - 06/05 [place] 31.0 /2018 [facility] HEMATOLOGY MCV 90.7 80.0 - 06/05 [place] 98.0 /2018 [facility] HEMATOLOGY Hct 38.3 36.0 - 06/05 [place] 48.0 /2018 [facility] HEMATOLOGY RDW 14.0 11.5 - 06/05 [place] 14.5 /2018 [facility] HEMATOLOGY MCHC 32.9 32.0 - 06/05 [place] 36.0 /2018 [facility] HEMATOLOGY MPV 8.6 7.4 - 10.4 06/05 [facility] HEMATOLOGY Platelet 219 133 - 450 06/05 [facility] HEMATOLOGY WBC 11.0 3.7 - 10.4 06/05 [facility] HEMATOLOGY Hgb 12.6 12.0 - 06/05 [place] 16.0 2018 [facility] HEMATOLOGY RBC 4.23 4.20 - 06/05 [place] 5.40 /2018 [facility] PARATHYROID Ca Norm WB 0.99 1.05 - 06/05 [place] PROFILE 1.25 /2017 [facility] PARATHYROID Ca Ion WB 1.00 1.05 - 04/21 [place] PROFILE 1. [facility] BACTERIAL - MRSA by PCR Negative 04/20 [place] SEROLOGY (04/20/18 4:00 PM) [facility] BLOOD BANK Antibody Negative 04/20 [facility] RESULTS Scrn (04/20/18 4:00 PM) [facility] BLOOD BANK ABO/Rh O POS 04/20 [facility] RESULTS [facility] CARDIAC CK MB Index 0.8 0.0 - 2.5 04/20 [facility] ENZYMES [facility] CARDIAC CK MB 0.8 0.5 - 3.6 04/20 [facility] ENZYMES [facility] CARDIAC Troponin-T <0.010 0.000 - 04/20 [facility] ENZYMES 0.100 [facility] CARDIAC Troponin-I <0.02 0.00 - 04/20 [facility] ENZYMES 0.40 [facility] CARDIAC Total CK 95 12 - 191 04/20 [facility] ENZYMES [facility] CARDIAC Total CK 98 12 - 191 04/20 [facility] ENZYMES [facility] CHEM PANEL Phosphorus 3.0 2.5 - 4.5 04/20 [facility] [address] [place] [address] CHEM PANEL B/C Ratio 26 6 - 25 04/20 [facility] [address] [place] [address] CHEM PANEL A/G Ratio 1.1 0.7 - 1.6 04/20 [facility] CHEM PANEL Globulin 3.4 2.7 - 4.2 04/20 [facility] CHEM PANEL AGAP 13.2 10.0 - 04/20 [facility] 20.0 [facility] CHEM PANEL eGFR 94 04/20 Result Comment: [facility] eGFR is Center calculated using the CKD-EPI formula. In most young, healthy individuals the eGFR will be >90 mL/min/1.73m2 . The eGFR declines with age. An eGFR of 60-89 may be normal in some populations, particularly the elderly, for whom the CKD-EPI formula has not been extensively validated. Use of the eGFR is not recommended in the following populations:< br/>
Therese viduals with unstable creatinine concentration s, including patients and those with serious co-morbid conditions.<b r/>
Patie nts with extremes in muscle mass or diet.

The data above are obtained from the National Kidney Disease Education Program (NKDEP) which additionally recommends that when the eGFR is used in patients with extremes of body mass index for purposes of drug dosing, the eGFR should be multiplied by the estimated BMI. CHEM PANEL AST 19 0 - 37 06/ [address] CHEM PANEL Alk Phos 51 39 - 136 04/[address] CHEM PANEL ALT 22 0 - 65 04/20 [address] CHEM PANEL Total 7.0 6.4 - 8.4 04/20 [facility] CHEM PANEL Calcium Lvl 8.2 8.5 - 10.5 04/20 [facility] [place] [facility] CHEM PANEL Albumin Lvl 3.6 3.5 - 5.0 04/20 [facility]2017 [facility] CHEM PANEL CO2 24 24 - 32 04/[address] CHEM PANEL Bili Total 0.4 0.2 - 1.3 04/[address] CHEM PANEL Potassium 4.2 3.5 - 5.1 04/[address] CHEM PANEL Chloride Lvl 110 95 - 109 04/[address] CHEM PANEL Sodium Lvl 143 135 - 145 04/[address] CHEM PANEL BUN 15 7 - 22 04/[address] CHEM PANEL Creatinine 0.58 0.50 - 04/20 [facility] 1.40 /2017 [facility] CHEM PANEL Glucose Lvl 84 70 - 99 04/[address] CHEM PANEL Lactic Acid 0.9 0.5 - 2.2 04/20 [facility] CHEM PANEL Magnesium 2.1 1.8 - 2.4 04/[address] DRUG SCREEN UDS Note See Note 04/20 [facility] (04/20/18 4:00 PM) /2017 [facility] DRUG SCREEN U Phencyc Negative Negative 04/20 [place] *NA* [facility] (04/20/18 4:00 PM) Center DRUG SCREEN U Opiate [place] Negative 04[place]20 [place]* [facility] (04/20/18 4:00 PM) Center DRUG SCREEN U Cannab [place] Negative Negative 04/20 [place]* [facility] (04/20/18 4:00 PM) Center DRUG SCREEN U Cocaine Negative Negative 04/20 [place] *NA* /2017 [facility] (04/20/18 4:00 PM) Center DRUG SCREEN U [place] Negative Negative [place] /2017 [facility] (04/20/18 4:00 PM) Center DRUG SCREEN U Benz[place] Negative Negative 04/[place] /2017 [facility] (04/20/18 4:00 PM) Center DRUG SCREEN U Amph [place] Negative Negative 04[place] /2017 [facility] (04/20/18 4:00 PM) Center HEMATOLOGY MCHC 33.3 32.0 - 04/20 [facility] 36.0 /2017 [facility] HEMATOLOGY Platelet 242 133 - 450 04/20 [facility] HEMATOLOGY RDW 14.0 11.5 - 06 [facility] 14.5 [facility] HEMATOLOGY MPV 8.8 7.4 - 10.4 04/20 [facility] HEMATOLOGY MCV 90.5 80.0 - 04/20 [facility] 98.0 [facility] HEMATOLOGY Hct 38.6 36.0 - 04/20 [place] 48.0 [facility] HEMATOLOGY MCH 30.2 27.0 - 04/20 [facility] 31.0 [facility] HEMATOLOGY WBC 6.7 3.7 - 10.4 04/20 [facility] HEMATOLOGY Hgb 12.9 12.0 - 04/20 [facility] 16.0 [facility] HEMATOLOGY RBC 4.26 4.20 - 04/20 [facility] 5.40 /2017 [facility] HEMATOLOGY PT 13.4 12.0 - 04/20 [place] 14.7 [facility] HEMATOLOGY PTT 28.9 22.9 - 04/20 [place] 35.8 [facility] HEMATOLOGY INR 1.02 0.85 - 04/20 [place] 1.17 [facility] HEMATOLOGY Monocytes # 0.6 0.0 - 0.8 04/[place]2017 [facility] HEMATOLOGY Lymphocytes 1.9 1.0 - 5.5 04/[place] /2017 [facility] HEMATOLOGY Eosinophils 0.4 0.0 - 0.5 04/[place] /2017 [facility] HEMATOLOGY Segs-Bands # 3.8 1.5 - 8.1 04/20 [facility] /2017 [facility] HEMATOLOGY Basophils 0.6 0.0 - 1.0 04/20 [facility] HEMATOLOGY Eosinophils 5.4 0.0 - 4.0 04/20 [facility] HEMATOLOGY Monocytes 9.6 2.0 - 12.0 04/20 [facility] [address] [place] [address] HEMATOLOGY Lymphocytes 28.0 20.0 - 04/20 [facility] 40.0 [facility] HEMATOLOGY Segs 56.4 45.0 - 04/20 [facility] 75.0 [facility] HEMATOLOGY TEG Interp Thrombelas 04/20 [facility] tograph [facility] show shortened value of R and increased value of Angle Alpha. 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 CPT:39487 HEMATOLOGY TEG Data See Note 04/20 [facility] (04/20/18 4:00 PM) [facility] HEMATOLOGY Coag Index 3.2 -3.0-3.0 - 04/20 [facility] 3.0 [facility] HEMATOLOGY Max Amp 69.3 50.0 - 04/20 [facility] 70.0 [facility] HEMATOLOGY Angle 74.1 53.0 - 04/20 [facility] 72.0 [facility] HEMATOLOGY K-time 1.2 1.0 - 3.0 04/20 [facility] HEMATOLOGY R-time 4.1 5.0 - 10.0 04/20 [facility] HEMATOLOGY Ly30 0.0 0.0 - 7.5 04/20 [facility] HEMATOLOGY G-value 11.3 4.5 - 11.0 04/20 [facility] [address] [place] [address] PARATHYROID Ca Ion WB 1.08 1.05 - 04/20 [facility] PROFILE 1. [facility] PARATHYROID Ca Norm WB 1.06 1.05 - 04/20 [facility] PROFILE 1. [facility] CHEM PANEL Glucose Lvl 92 70 - 99 09/27 <sup>1</sup>I nterpretive [facility] Data: Adult City reference range values reflect the clinical guidelines
of the [place] [employer]. HEMATOLOGY Hgb 13.2 12.0 - 11 16.0 [facility] HEMATOLOGY Hct 39.5 36.0 - 09/27 48.0 [facility] Pathology Reports No Data Provided for This Section Diagnostic Reports Report Value Date Source Brain wo contrast CT EXAM: CT BRAIN WITHOUT CONTRAST 05/27/2018 [employer] DATE: 05/27/2018 11:22 AM CDT INDICATION: - pt is scheduled w/ Trauma Clinic on 06/04 @ 12:30pm ADDITIONAL HISTORY: Subdural hematoma with previ ous surgical evacuation 05/04 COMPARISON: Head CT 05/06/2018; MRI brain 2017 TECHNIQUE: Axial CT images o f the brain were obtained. Sagittal and coronal reformats. IV contrast: None. FINDINGS: Decreased size of the right frontoparietal subdural hematoma which now is 0.9 cm (series 401b image 56) in the thickest portions, previously 1.6 cm. Dependent portions of the collection become gradually more hyperattenuating. Mini mal associated local mass effect is also improved since the prior exam. No herniation. Unchanged right frontal and parietal arvin holes. No brain parenchymal density abnormality. No isc hemic infarction. No mass. Minimal ex vacuo ventricular dilatation from central parenchymal volume loss. The density of the larger dural sinuses is normal. The paranasal sinuses and ma stoid air cells are predominantly clear. The patient is status post right lens replacement. IMPRESSION: Interval decrea se in size of the right frontoparietal subdural hematoma with improved now minimal mass effect. No herniation. Brain wo contrast CT EXAM: CT BRAIN WITHOUT CONTRAST 05/06/2018 [facility] [facility] DATE: 05/06/2018 10:00 AM CDT INDICATION: - pt is scheduled w/ Trauma clinic on 05/07 @ 12:30pm COMPARISON: MRI of the brain 04/20/2018. CT of the brain 04/21/2018. TECHNIQUE: Axial CT images o f the brain were obtained. Sagittal and coronal reformats. IV contrast: None. DLP: 1040 mGy-cm FINDINGS: Compared to 04/21/2018, there has been interval removal of the drainage catheter in the right convexity subdural space. Also, there is decreased pne umocephalus over the right convexity. A low density fluid collection measuring up to 1.3 cm in thickness is present. It exerts mass effect, with minimal leftward midline shif t (about 2 mm), significantly improved from MRI study of 04/20/2018. Postsurgical changes related to right frontal cr aniotomy. IMPRESSION: Compared to 04/21/2018, draina ge catheter in the right convexity subdural space has been removed. Increased subdural fluid collection measuring up to 1.3 cm in thickness is present with minimal leftward midline shift up to about 2 mm. Brain wo contrast CT EXAM: CT BRAIN WITHOUT CONTRAST 04/21/2018 [facility] DATE: 04/21/2018 3:56 AM Center INDICATION: Subdural hematoma evacuation COMPARISON: MRI brain from 04/20/2018 TECHNIQUE: Axial noncontrast imaging of the brain. Coronal and sagittal reformatted images were not generated. DLP: 1046mGy-cm FINDINGS: Imaging is degraded by patient motion at the [facility]. Intervening postoperative ch anges related to right-sided arvin hole and subdural drainage catheter placement, with subdural hematoma evacuation. Expected postoperative pneumocephalus with residual subdur al collection measuring 7 mm in thickness, predominantly low attenuation with a small amount of hyperattenuating hemorrhage layering dependently. 2.5 mm residual midline shift to the left, reduced since the prior study. Mild inter corrine ventricular expansion following relief of mass effect. The basal cisterns are patent. No acute parenchymal abnormality. IMPRESSION: Expected postop erative changes following arvin hole and catheter drainage of right convexity subdural hematoma. Chest 1view DX EXAM: XR CHEST 1 VIEW 04/20/2018 [facility] DATE: 04/20/2018 3:38 PM CDT Cente r INDICATION: - baseline, s/p trauma COMPARISON: None. TECHNIQUE: AP chest FINDINGS: Lines, tubes and hardware: None. Lungs and pleura: No pulmona ry or pleural based abnormality is identified. Pulmonary vascularity is normal. Heart and mediastinum: The h eart size is normal for technique. The mediastinal contours are normal. Bones: Degenerative changes are seen throughout the visualized spine. IMPRESSION: No acute cardiopulmonary abnormalit y. Consultation Notes No Data Provided for This Section Discharge Summaries No Data Provided for This Section History and Physicals No Data Provided for This Section Vital Signs Vital Sign Value Date Comments Source Systolic (mm Hg) 122 04/23/2018 [facility] Diastolic (mm Hg) 82 04/23/2018 [facility] Respitory Rate 18 04/23/2018 [facility] Temperature Oral (F) 98.2 F 04/23/2018 [facility] Heart Rate 84 04/23/2018 [facility] Heart Rate 91 04/23/2018 [facility] Respitory Rate 18 04/23/2018 [facility] Temperature Oral (F) 98.4 F 04/23/2018 [facility] Systolic (mm Hg) 122 04/23/2018 [facility] Center Diastolic (mm Hg) 80 04/23/2018 [facility] Temperature Oral (F) 98.5 F 04/23/2018 [facility] Heart Rate 103 04/23/2018 [facility] Respitory Rate 16 04/23/2018 [facility] Systolic (mm Hg) 121 04/23/2018 [facility] Center Diastolic (mm Hg) 80 04/23/2018 [facility] Weight 68.182 04/20/2018 [facility] BMI Calculated 27.49 04/20/2018 [facility] Height 157.48 cm 04/20/2018 [facility] Diastolic (mm Hg) 75 09/29/[address] [facility] Respitory Rate 16 09/29/2014 [facility] it Systolic (mm Hg) 124 09/29/2014 [facility] Diastolic (mm Hg) 78 09/29/[address] [facility] Respitory Rate 16 09/29/2014 [facility] ity Systolic (mm Hg) 118 09/29/2014 [facility] Diastolic (mm Hg) 73 09/29/[address] [facility] Systolic (mm Hg) 122 09/29/2014 [facility] Respitory Rate 16 09/29/2014 [facility] ity Heart Rate 74 09/29/[address] [facility] y Height 160.02 cm 09/27/[address] [facility] y Weight 65.909 09/27/[address] [facility] y BMI Calculated 25.74 09/27/2014 [facility] ity Encounters Location Location Encounter Encounter Reason Attending ADM DC Stat us Source Details Type Number For Provider Date Date Visit [facility] OBS [id number] Rolly 09/29 09/29 [facility] [place] /2013 [facility] [id number] [place] 04/20 04/23 Leidy Olson [place] /2017 [facility] MNA Phone [id number] 04/23 04/25 Misc her Neurosurger Message /2017 [facility] Phone [id number] 05/01 05/03 Misc her Neurosurger Message [facility] Di[facility] [id number] Luc 05/06 05/07 [facility] [place] [facility] [id number] TRAUMA 05/07 [facility] Outpatient [id number] Luc 05/07 05/08 [facility] Cristy [facility] Phone [id number] 05/13 05/15 Misc her Neurosurger Message /2017 [facility] Phone [id number] 05/18 05/20 Misc her Neurosurger Message [facility] Di[facility] [id number] Lcu 05/27 05/28 [facility] MNA Phone [id number] 06/02 06/04 Misc her Neurosurger Message /2017 [facility]patient [id number] TRAUMA 06/04 [facility] [place] MNA Ambulatory [id number] TRAUMA 06/04 06/04 [facility] Pre-Reg VISIT [facility]NA Phone [id number] 06/08 06/10 Misc her Neurosurger Message /2017 [facility] Phone [id number] 06/08 06/10 Misc her Neurosurger Message /2017 [facility] Phone [id number] 07/10 07/12 Mis her Neurosurger Message /2017 [facility] Procedures Procedure Code Date Perfomer Comments Source Breast augmentation [id number] 11/17/1985 [facility], CAROL Olson,[facility] CE - Cataract [id number] [facility] extraction Neuro,[facility], CAROL Olson,[facility] Laparoscopic [id number] [facility] adhesiolysis Neuro[facility], CAROL Olson,[facility] Laparotomy [id number] [facility], CAROL Olson,[facility] Sling procedure of [id number] Leonardache r bladder neck Neuro,[facility], CAROL Olson,[facility] Assessment and Plan No Data Provided for This Section Plan of Care No Data Provided for This Section Social History Social History Date Source Social History TypeResponse 09/27/2014 [facility] Current Smoking Status Never smoker; Exposure to Tobacco Smoke None; Cigarette Smoking Last 365 Days No; Reg Smoking Cessation Counseling No entered on: 04/20/18 Social History TypeResponse 09/27/2014 [facility] Alcohol Current Smoking Status Never smoker; Exposure to Tobacco Smoke None; Cigarette Smoking Last 365 Days No; Reg Smoking Cessation Counseling No entered on: 04/20/18 Social History TypeResponse 09/27/2014 [facility] pal[facility] Alcohol Current Smoking Status Never smoker; Exposure to Tobacco Smoke None; Cigarette Smoking Last 365 Days No; Reg Smoking Cessation Counseling No entered on: 04/20/18 Social History TypeResponse 09/27/2014 [facility] Alcohol Use: Current Smoking Status Never smoker, Exposure to Tobacco Smoke None, Cigarette Smoking Last 365 Days No, Reg Smoking Cessation Counseling No Family History No Data Provided for This Section Advance Directives No Data Provided for This Section Functional Status No Data Provided for This Section
[2020-06-30] MEDS ORDERED: FENTANYL CITR 100 MCG/2 ML ONE (19:53)
--- NOTE | 2020-06-30 21:14 | RAD REPORT ---
EXAM DESCRIPTION: US - Extremity Venous Uni Ltd - 06/30/2020 9:08 pm CLINICAL HISTORY: Pain;Swelling Leg swelling and edema. COMPARISON: No comparisons FINDINGS: Right lower extremity venous system was interrogated with Doppler technique. Normal flow, compressibility and augmentation was noted. There is no DVT present. IMPRESSION: No evidence of right lower extremity deep venous thrombosis.
[2020-06-30] MEDS ORDERED: MAGNE/ALUM HYDROXD 30 ML UCUP ONE (21:50)
[2020-06-30] MEDS ORDERED: DIAZEPAM 2 MG TABLET ONE (21:51)
--- NOTE | 2020-06-30 23:10 | ER ---
Nurse's Notes [facility] Name: Tennille Rey Age: 74 yrs Sex: Female : 1945 Arrival Date: 06/30/2020 Time: 19:20 Bed 24 Private MD: Diagnosis: Pain in right leg Presentation: 06/30 19:34 Chief complaint: Patient states: "I had a recent venous surgery, but even before, my jd3 right leg has been hurting a great deal. the pain starts from behind my knee and come up through my thigh.". Coronavirus screen: At this time, the client does not indicate any symptoms associated with coronavirus-19. Ebola Screen: Patient negative for fever greater than or equal to 101.5 degrees Fahrenheit, and additional compatible Ebola Virus Disease symptoms. Initial Sepsis Screen: Does the patient meet any 2 criteria? No. Patient's initial sepsis screen is negative. Does the patient have a suspected source of infection? No. Patient's initial sepsis screen is negative. Risk Assessment: Do you want to hurt yourself or someone else? Patient reports no desire to harm self or others. Onset of symptoms was June 30, 2020. 19:34 Method Of Arrival: Wheelchair jd3 19:34 Acuity: ADRIÁN 3 jd3 Triage Assessment: 19:37 General: Appears in no apparent distress. uncomfortable, Behavior is calm, cooperative. ls4 19:40 Pain: Complains of pain in posterior aspect of right knee and lateral aspect of right ls4 knee Pain currently is 10 out of 10 on a pain scale. Historical: - Allergies: 19:38 Codeine; jd3 19:38 Codeine; ls4 - Home Meds: 19:38 Elavil [Active]; omeprazole 40 mg oral cpDR [Active]; atorvastatin 10 mg oral tab jd3 [Active]; montelukast oral oral [Active]; raloxifene 60 mg oral tab [Active]; - PMHx: 19:38 High Cholesterol; jd3 - PSHx: 19:38 breast augmentation; Appendectomy; ; Bladder suspension; venous sx; jd3 19:38 breast augmentation; Appendectomy; ; Bladder suspension; ls4 - Immunization history:: Adult Immunizations up to date, Adult Immunizations up to date. - Social history:: Smoking status: Patient denies any tobacco usage or history of. Smoking status: Patient denies any tobacco usage or history of. Screenin:36 Abuse screen: Denies threats or abuse. Denies injuries from another. Nutritional ls4 screening: No deficits noted. Tuberculosis screening: No symptoms or risk factors identified. Fall Risk None identified. Assessment: 20:30 Reassessment: Patient appears in no apparent distress at this time. Patient and/or ls4 family updated on plan of care and expected duration. Pain level reassessed. Patient is alert, oriented x 3, equal unlabored respirations, skin warm/dry/pink. Patient states symptoms have improved. 20:30 Neuro: No deficits noted. Cardiovascular: No deficits noted. Respiratory: No deficits ls4 noted. Musculoskeletal: Circulation, motion, and sensation intact. Capillary refill < 3 seconds, Range of motion: limited in right knee. 21:37 Reassessment: pt complains of indigestion. ls4 Vital Signs: 19:38 Pulse 81; Resp 17 S; Temp 97.9(TE); Pulse Ox 95% on R/A; Weight 65.77 kg (R); Height 5 jd3 ft. 2 in. (157.48 cm) (R); Pain 5/10; 20:30 BP 124 / 79; Pulse 80; Resp 16; Pulse Ox 100% on R/A; Pain 5/10; ls4 21:37 BP 122 / 76; Pulse 78; Resp 16; Pulse Ox 99% on R/A; ls4 19:38 Body Mass Index 26.52 (65.77 kg, 157.48 cm) jd3 ED Course: 19:20 Patient arrived in ED. ag3 19:21 Rodolfo Leonard MD is Attending Physician. pkl 19:23 Jodie Rowe, GUSTAVO is Primary Nurse. ls4 19:34 [facility]C [facility] snw 19:36 Triage completed. jd3 19:36 No apparent distress. ls4 19:36 Patient has correct armband on for positive identification. Bed in low position. Call ls4 light in reach. Side rails up X 1. Pulse ox on. NIBP on. Verbal reassurance given. 19:36 No provider procedures requiring assistance completed. ls4 19:37 Arm band placed on. ls4 21:08 US Extremity Venous Unilateral Ltd In Process Unspecified. EDMS 22:21 CT Lumbar Spine Wo Con In Process Unspecified. EDMS 22:21 CT Pelvis wo Cont In Process Unspecified. EDMS 23:09 Teodoro Brown MD is Referral Physician. snw 23:10 Rodolfo Leonard MD is Attending Physician. snw 23:42 Patient did not have IV access during this emergency room visit. ls4 Administered Medications: 19:50 Drug: fentaNYL (PF) 50 mcg Route: IM; Site: left deltoid; ls4 21:25 Follow up: Response: No adverse reaction; Pain is decreased ls4 21:43 Drug: Maalox Suspension (200 mg-200 mg-20 mg/5 mL) 30 ml Route: PO; ls4 22:03 Follow up: Response: No adverse reaction; Marked relief of symptoms ls4 21:43 Drug: Valium 2 mg Route: PO; ls4 22:46 Follow up: Response: No adverse reaction; Marked relief of symptoms ls4 23:10 Drug: fentaNYL Patch (25 mcg/hr) 1 patches Route: Transdermal; Site: anterior chest ls4 wall; Outcome: 23:09 Discharge ordered by . snw 23:30 Discharged to home via wheelchair. ls4 23:30 Condition: good 23:30 Discharge instructions given to patient, family, Instructed on discharge instructions, follow up and referral plans. medication usage, safety practices, Demonstrated understanding of instructions, follow-up care, medications, Prescriptions given X 2. 23:42 Patient left the ED. ls4 Signatures: Dispatcher [employer] EDVT Rodolfo Leonard MD MD pkl Waters, Shelly, MIG TIG WELDER-C MIG TIG WELDER-Csnw Gianluca Gonzalez RN RN Katherine Egan3 Jodie Rowe RN RN ls4
--- NOTE | 2020-06-30 23:10 | EDPHYS ---
Physician Documentation [facility] Name: Tennille Rey Age: 74 yrs Sex: Female : 1945 Arrival Date: 06/30/2020 Time: 19:20 Bed 24 Private MD: ED Physician Rodolfo Leonard HPI: 06/30 19:39 This 74 yrs old Female presents to ER via Wheelchair with complaints of Leg snw Pain. 19:39 The patient presents with pain, that is acute. The complaints affect the lateral aspect snw of right knee and posterior aspect of right knee. Context: The problem was sustained at home, resulted from an unknown cause, pt recently had sclerotherapy on right lower leg, the patient can partially bear weight, the patient is able to ambulate, with mild difficulty. Onset: The symptoms/episode began/occurred acutely, 3 week(s) ago, and became worse this morning. Associated signs and symptoms: The patient has no apparent associated signs or symptoms. Severity of symptoms: At their worst the symptoms were moderate. The patient has not experienced similar symptoms in the past. as noted. Historical: - Allergies: 19:38 Codeine; jd3 19:38 Codeine; ls4 - Home Meds: 19:38 Elavil [Active]; omeprazole 40 mg oral cpDR [Active]; atorvastatin 10 mg oral tab jd3 [Active]; montelukast oral oral [Active]; raloxifene 60 mg oral tab [Active]; - PMHx: 19:38 High Cholesterol; jd3 - PSHx: 19:38 breast augmentation; Appendectomy; ; Bladder suspension; venous sx; jd3 19:38 breast augmentation; Appendectomy; ; Bladder suspension; ls4 - Immunization history:: Adult Immunizations up to date, Adult Immunizations up to date. - Social history:: Smoking status: Patient denies any tobacco usage or history of. Smoking status: Patient denies any tobacco usage or history of. ROS: 19:38 Constitutional: Negative for fever, chills, and weight loss, Eyes: Negative for injury, snw pain, redness, and discharge, ENT: Negative for injury, pain, and discharge, Neck: Negative for injury, pain, and swelling, Cardiovascular: Negative for chest pain, palpitations, and edema, Respiratory: Negative for shortness of breath, cough, wheezing, and pleuritic chest pain, Abdomen/GI: Negative for abdominal pain, nausea, vomiting, diarrhea, and constipation, Back: Negative for injury and pain, : Negative for injury, bleeding, discharge, and swelling, Skin: Negative for injury, rash, and discoloration, Neuro: Negative for headache, weakness, numbness, tingling, and seizure, Psych: Negative for depression, anxiety, suicide ideation, homicidal ideation, and hallucinations, Allergy/Immunology: Negative for hives, rash, and allergies. 19:38 MS/extremity: Positive for pain, tenderness, of the posterior aspect of right knee. Exam: 19:35 Constitutional: This is a well developed, well nourished patient who is awake, alert, snw and in no acute distress. Head/Face: Normocephalic, atraumatic. Eyes: Pupils equal round and reactive to light, extra-ocular motions intact. Lids and lashes normal. Conjunctiva and sclera are non-icteric and not injected. Cornea within normal limits. Periorbital areas with no swelling, redness, or edema. ENT: Nares patent. No nasal discharge, no septal abnormalities noted. Tympanic membranes are normal and external auditory canals are clear. Oropharynx with no redness, swelling, or masses, exudates, or evidence of obstruction, uvula midline. Mucous membranes moist. Neck: Trachea midline, no thyromegaly or masses palpated, and no cervical lymphadenopathy. Supple, full range of motion without nuchal rigidity, or vertebral point tenderness. No Meningismus. Chest/axilla: Normal chest wall appearance and motion. Nontender with no deformity. No lesions are appreciated. Cardiovascular: Regular rate and rhythm with a normal S1 and S2. No gallops, murmurs, or rubs. Normal PMI, no JVD. No pulse deficits. Respiratory: Lungs have equal breath sounds bilaterally, clear to auscultation and percussion. No rales, rhonchi or wheezes noted. No increased work of breathing, no retractions or nasal flaring. Abdomen/GI: Soft, non-tender, with normal bowel sounds. No distension or tympany. No guarding or rebound. No evidence of tenderness throughout. Back: No spinal tenderness. No costovertebral tenderness. Full range of motion. Neuro: Awake and alert, GCS 15, oriented to person, place, time, and situation. Cranial nerves II-XII grossly intact. Motor strength 5/5 in all extremities. Sensory grossly intact. Cerebellar exam normal. Normal gait. Psych: Awake, alert, with orientation to person, place and time. Behavior, mood, and affect are within normal limits. 19:35 Musculoskeletal/extremity: Extremities: grossly normal except: noted in the lateral aspect of right knee and posterior aspect of right knee: ROM: no acute changes, Circulation is intact in all extremities. Sensation intact. Compartment Syndrome exam of affected extremity: is normal. no numbness, no tingling, no sensation deficit, no palor, no weak pulses, DVT Exam: negative Homans' sign noted on exam, no appreciated bluish discoloration, no erythema, no increased warmth, pain, swelling, tenderness, of the right leg, of the popliteal area, possible Paniagua's Cyst. Pt had sclerotherapy to medial right lower extremity 2 weeks ago. Pt states even before the procedure she had pain/swelling/tenderness behind the right knee.. Vital Signs: 19:38 Pulse 81; Resp 17 S; Temp 97.9(TE); Pulse Ox 95% on R/A; Weight 65.77 kg (R); Height 5 jd3 ft. 2 in. (157.48 cm) (R); Pain 5/10; 20:30 BP 124 / 79; Pulse 80; Resp 16; Pulse Ox 100% on R/A; Pain 5/10; ls4 21:37 BP 122 / 76; Pulse 78; Resp 16; Pulse Ox 99% on R/A; ls4 19:38 Body Mass Index 26.52 (65.77 kg, 157.48 cm) jd3 MDM: 19:22 Patient medically screened. pkl 22:10 Data reviewed: vital signs, nurses notes, radiologic studies. Data interpreted: Pulse snw oximetry: on room air is 99 %. Counseling: I had a detailed discussion with the patient and/or guardian regarding: the historical points, exam findings, and any diagnostic results supporting the discharge/admit diagnosis, radiology results. Response to treatment: the patient's symptoms have mildly improved after treatment, pain but complained of some indigestion. Pt given Maalox and Valium. Will review lumbar and pelvic CT post exam.. 06/30 19:35 Order name: Extremity Venous Unilateral Ltd; Complete Time: 21:22 snw 06/30 21:23 Order name: CT Lumbar Spine Wo Con snw 06/30 21:23 Order name: CT Pelvis wo Cont snw Administered Medications: 19:50 Drug: fentaNYL (PF) 50 mcg Route: IM; Site: left deltoid; ls4 21:25 Follow up: Response: No adverse reaction; Pain is decreased ls4 21:43 Drug: Maalox Suspension (200 mg-200 mg-20 mg/5 mL) 30 ml Route: PO; ls4 22:03 Follow up: Response: No adverse reaction; Marked relief of symptoms ls4 21:43 Drug: Valium 2 mg Route: PO; ls4 22:46 Follow up: Response: No adverse reaction; Marked relief of symptoms ls4 23:10 Drug: fentaNYL Patch (25 mcg/hr) 1 patches Route: Transdermal; Site: anterior chest ls4 wall; Disposition: 07/01 00:54 Co-signature as Attending Physician, Rodolfo Leonard MD. flavia Disposition: 06/30/20 23:09 Discharged to Home. Impression: Pain in right leg. - Condition is Stable. - Discharge Instructions: Musculoskeletal Pain, Pain Without a Known Cause, Cryotherapy, Heat Therapy. - Prescriptions for Valium 2 mg Oral Tablet - take 1 tablet by ORAL route every 8 hours As needed; 15 tablet. Prednisone 20 mg Oral Tablet - take 2 tablet by ORAL route once daily for 5 days; 10 tablet. - Medication Reconciliation Form, Thank You Letter, Antibiotic Education, Prescription Opioid Use form. - Follow up: Private Physician; When: 1 week; Reason: Recheck today's complaints, Continuance of care, Re-evaluation by your physician. Follow up: Emergency Department; When: As needed; Reason: Worsening of condition. Follow up: Teodoro Brown MD; When: 2 - 3 days; Reason: Recheck today's complaints, Continuance of care. Signatures: Dispatcher [employer] Rodolfo Campbell MD MD pkl Waters, Shelly, ANGER CONTROL COUNSELOR-C ANGER CONTROL COUNSELOR-Nichow Gianluca Gonzalez RN RN jd3 Jodie Rowe RN RN ls4 Corrections: (The following items were deleted from the chart) 06/30 23:42 23:09 06/30/2020 23:09 Discharged to Home. Impression: Pain in right leg. Condition is ls4 Stable. Forms are Medication Reconciliation Form, Thank You Letter, Antibiotic Education, Prescription Opioid Use. Follow up: Private Physician; When: 1 week; Reason: Recheck today's complaints, Continuance of care, Re-evaluation by your physician. Follow up: Emergency Department; When: As needed; Reason: Worsening of condition. Follow up: Teodoro Brown; When: 2 - 3 days; Reason: Recheck today's complaints, Continuance of care. snw
[2020-06-30] MEDS ORDERED: FENTANYL 25 MCG/PATCH TD ONE (23:21)
[2020-06-30 23:47] VITALS: TEMP 97.9
[2020-06-30 23:50] VITALS: BP 122/76; O2SAT 99
--- NOTE | 2020-07-03 09:40 | RAD REPORT ---
EXAM DESCRIPTION: Spine Lumbar Wo Con (accession [id number]), Pelvis Wo Cont (accession [id number]) CLINICAL HISTORY: 74 years Female, PAIN COMPARISON: None. TECHNIQUE: Multiple, helical axial tomographic images were obtained of the lumbar spine and pelvis w ithout intravenous contrast. Coronal and sagittal reformatted images were obtained. This exam was per formed according to our departmental dose-optimization program, which includes automated exposure con trol, adjustment of the mA and/or kV according to patient size and/or use of iterative reconstruction technique. FINDINGS: No evidence for an acute fracture of the lumbar spine. Vertebral body heights are maintain ed. No subluxation. Degenerative facet arthropathy at L4-5 and L5-S1 noted. Opposing spinous processe s at multiple demonstrated with associated mild osteophyte formation.. There is mild bilateral neural foraminal narrowing at L4-5 and L5-S1. Central canal is grossly patent. No evidence of an acute fracture of the pelvis. No hip dislocation. Aortoiliac atherosclerosis is demonstrated. Colonic diverticula are present. There is a moderate amou nt of fecal material in the rectum. IMPRESSION: No evidence for an acute fracture of the lumbar spine or pelvis. Electronically signed by: Triston Boyer MD 06/30/2020 10:50 PM CDT Due to temporary technical issues with the PACS/Fluency reporting system, reports are being signed by the in house radiologist without review as a courtesy to ensure prompt reporting. The interpreting r adiologist is fully responsible for the content of the report.
--- NOTE | 2020-07-03 09:48 | RAD REPORT ---
EXAM DESCRIPTION: Spine Lumbar Wo Con (accession [id number]), Pelvis Wo Cont (accession [id number]) CLINICAL HISTORY: 74 years Female, PAIN COMPARISON: None. TECHNIQUE: Multiple, helical axial tomographic images were obtained of the lumbar spine and pelvis w ithout intravenous contrast. Coronal and sagittal reformatted images were obtained. This exam was per formed according to our departmental dose-optimization program, which includes automated exposure con trol, adjustment of the mA and/or kV according to patient size and/or use of iterative reconstruction technique. FINDINGS: No evidence for an acute fracture of the lumbar spine. Vertebral body heights are maintain ed. No subluxation. Degenerative facet arthropathy at L4-5 and L5-S1 noted. Opposing spinous processe s at multiple demonstrated with associated mild osteophyte formation.. There is mild bilateral neural foraminal narrowing at L4-5 and L5-S1. Central canal is grossly patent. No evidence of an acute fracture of the pelvis. No hip dislocation. Aortoiliac atherosclerosis is demonstrated. Colonic diverticula are present. There is a moderate amou nt of fecal material in the rectum. IMPRESSION: No evidence for an acute fracture of the lumbar spine or pelvis. Electronically signed by: Triston Boyer MD 06/30/2020 10:50 PM CDT Due to temporary technical issues with the PACS/Fluency reporting system, reports are being signed by the in house radiologist without review as a courtesy to ensure prompt reporting. The interpreting r adiologist is fully responsible for the content of the report.
== END 2020-06-30 23:42 | disposition home or self-care (01) ==
LOC: ER 19:17
DX: M79.604 Pain in right leg (principal); E78.00 Pure hypercholesterolemia, unspecified; Z88.6 Allergy status to analgesic agent
CPT/HCPCS: 72131; 72192; 93971; 96372; 99284; J3010

== ENCOUNTER 2020-07-02 06:26 | Emergency (ER) | payer OTHER ==
--- OUTSIDE RECORDS SUMMARY | 2020-07-02 06:30 | XMS REPORT | Continuity of Care Document ---
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 Active 04/20/[address] [id number] Active 09/19/20 UPTURED IMPLANT 14 [facility] Gastroesophageal Active Problem 01/28/2019 Pa parth reflux disease Neuro , (disorder) [facility] [place] Medications Medication Details Route Status Patient Ordering Order Source Instructions Provider Date Physical Therapy See Active David s Instructions, 2018 Medical [facility], Center Evaluate and Treat 3 times per week for 6 weeks, # 18 ea, 0 Refill(s) Levetiracetam 500 mg = 1 tab, Active 04/23[facility] [place] 500 MG Oral PO, BID, # 14 2018 Medica l Tablet [Keppra] tab, 0 Refill(s) [place] tramadol 50 mg = 1 tab, Active 04/23[facility] hydrochloride 50 PO, Q6H, PRN 2018 Me dical MG Oral Tablet Pain Score 4-6, C enter X 4 day, # 16 tab, 0 Refill(s) Compazine Notes: (Same as: No Longer [facility] Compazine) Active [address] [place] [address] omeprazole 40 mg TAKE 1 CAPSULE Active 04/22[facility] oral delayed BY MOUTH ONCE A 2018 Med ical release capsule DAY 30 MINS Cent er BEFORE MEALS MUST MAKE APPT FOR MORE REFILLS atorvastatin 10 TAKE 1 TABLET BY Active 04/22[facility] mg oral tablet MOUTH DAILY 2018 Medic al [place] amitriptyline 25 TAKE 1 TABLET BY Active 04/22[facility] mg oral tablet MOUTH EVERYDAY 2018 Me dical AT BEDTIME [place] heparin sodium, Notes: porcine No Longer [facility] porcine 2500 heparin Active 2018 [facility] UNT/ML Center Injectable Solution atorvastatin Notes: (Same As: No Longer [facility] Lipitor) Active 2018 Medical [place] remove patch Notes: Remove No Longer [facility] patch 12 hours Active 2018 Medical after Center application each day. Phenergan Notes: [place] not [place]active [place] give IV push. 2018 Medical (Same as: [place] Phenergan) Phenergan Notes: Do not [place] give IV push. 2018 Medical (Same as: [place] Phenergan) Lidocaine Notes: Apply No Longer [place] [...] Active 2018 Medical 400mg/day. (Same Center As: [facility]) Ondansetron Notes: (Same as: No Longer [facility] Zofran) Active 2018 Medical MEDICATION WASTE Center Product Size: 4 mg Product Wasted: ___ mg pantoprazole Notes: Tablet No Longer [facility] should not be Active 2018 [facility] chewed or [place] crushed. (Same as: Protonix) Zofran Notes: (Same as: Inactive [place] Zofran) 2018 Medical MEDICATION WASTE Center Product Size: 4 mg Product Wasted: 0 mg Fentanyl Notes: (Same as: [place] Longer [place] Sublimaze) Active 2018 [facility] Preservative Center free. Saline Flush Notes: (Same as: No Longer [facility] 0.9% BD Posiflush) Active 2018 Medical [place] sennosides, SENIOR CARE Notes: (Same as: No Longer 04/21 [facility] Senokot) Active 2018 Medical Center Famotidine 20 mg, Route: Inactive 04/21[facility] [place] as IVP, Q12H, 2018 Medical Dosing Weight Center 65.909, kg, Start date: 04/20/18 21:00:00 CDT, Duration: 30 day, Stop date: 05/20/18 9:00:00 CDT Docusate Notes: (Same as: No Longer [place] Colace) (Do Not Active 2018 [facility]) Center Ondansetron 4 mg, Route: Inactive 04/21[facility] [place] as IVP, ONCE, 2018 Medical Dosing Weight Center 68.182, kg, PRN Nausea & Vomiting, Start date: 04/20/18 20:23:00 CDT Flumazenil 0.2 mg, Route: Inactive 04/21[facility] [place] IVP, PRN, Dosing 2018 Medical Weight 68.182, Center kg, PRN Benzodiazepine Reversal, Initial dose, Start date: 04/20/18 20:23:00 CDT, Duration: 30 day, Stop date: 05/20/18 20:22:00 CDT Naloxone 0.4 mg, Route: Inactive 04/21[facility] Luisa s IVP, Q2MIN, 2018 Medical Dosing Weight Center 68.182, kg, PRN Narcotic Reversal, Start date: 04/20/18 20:23:00 CDT, Duration: 8 doses or times, Stop date: Limited # of times Fentanyl 25 microgram, Inactive 04/21[facility] Route: IVP, 2018 Medical Q5Min, Dosing Center Weight 68.182, kg, PRN Pain Score 4-6, Priority: Routine, Start date: 04/20/18 20:23:00 CDT, Duration: 4 doses or times, Stop date: Limited # of times glycopyrrolate Route: IV, Drug Inactive 04/21[facility] (ANES) form: INJ, ONCE, 2018 Medical Stop date: [place] 04/20/18 20:11:00 CDT ondansetron Route: IV, Drug Inactive [address] [place] [address] (ANES) form: INJ, ONCE, 2018 Medical Stop date: [place] 04/20/18 20:11:00 CDT neostigmine Route: IV, Drug Inactive [address] [place] [address] (ANES) form: INJ, ONCE, 2018 Medical Stop date: [place] 04/20/18 20:11:00 CDT Ancef Notes: (Same as No Longer [place] Ancef) Active 2018 Medical Center [place]ana Notes: (Same as: No Longer Timothy miguel Gastelum) Active 2018 Medical MEDICATION WASTE Center Product Size: 4 mg Product Wasted: ___ mg Acetaminophen Notes: Same as No Longer [facility] [place] 325 MG / [place] 325-7.5mg Active 2018 Medical Hydrocodone Do not exceed Cente r Bitartrate 7.5 4gm/day of MG Oral Tablet acetaminophen. [[place] 7.5/325] Labetalol 20 mg, 4 mL, No Longer [place] Route: IVP, Drug Active 2017 Medical form: INJ, [place] Q15Min, Dosing Weight 68.182, kg, PRN Hypertension, Start date: 04/20/18 19:59:00 CDT, Duration: 3 doses or times, Stop date: Limited # of times Hydralazine Notes: (Same as: No Longer [facility] Apresoline) Push Active 2018 Medical over 5 minutes [place] lidocaine (ANES) Route: IV, Drug Inactive [facility] form: INJ, ONCE, 2017 Medical Stop date: [place] 04/20/18 19:47:00 CDT rocuronium Route: IV, Drug Inactive [place] (ANES) form: INJ, ONCE, 2017 Medical Stop date: [place] 04/20/18 19:42:00 CDT propofol (ANES) Route: IV, Drug Inactive 04/21/ [facility] form: INJ, ONCE, 2017 Medical Stop date: [place] 04/20/18 19:42:00 CDT fentaNYL (ANES) Route: IV, Drug Inactive 04/21/ [facility] form: INJ, ONCE, 2017 Medical Stop date: [place] 04/20/18 19:42:00 CDT ceFAZolin (ANES) Route: IV, Drug Inactive 04/21/ [facility] form: INJ, ONCE, 2017 Medical Stop date: [place] 04/20/18 19:22:00 CDT propofol (ANES) Route: IV, Drug Inactive [place] 10 mg form: INJ, Start 2018 Medical date: 04/20/18 [place] 19:08:00 CDT, Stop date: 04/20/18 20:08:00 CDT levETIRAcetam Route: IV, Drug Inactive [place] (ANES) 100 mg form: INJ, Start 2017 M edical date: 04/20/18 [place] 18:55:00 CDT, Stop date: 04/20/18 19:55:00 CDT Isolyte S PH 7.4 Route: IV, Total Inactive 04/20 [place] (ANES) 1000 mL Volume: 1,000, 2017 Me dical Start date: [place] 04/20/18 18:28:00 CDT, Stop date: 04/20/18 19:28:00 CDT Sodium Chloride Route: IV, Total Inactive [place] 0.9% IV (ANES) Volume: 1,000, 2017 Me dical 1000 mL Start date: [place] 04/20/18 18:25:00 CDT, Stop date: 04/20/18 19:25:00 CDT Streptococcus Notes: Shake No Longer [place] pneumoniae well prior to Active 2018 Medical serotype 1 use (Same as: [place] capsular antigen Prevnar 13) diphtheria [id number] protein conjugate vaccine / Streptococcus pneumoniae serotype 14 capsular antigen diphtheria [id number] protein conjugate vaccine / Streptococcus pneumoniae serotype 18C capsular antigen d normal saline 1,000 mL, Rate: No Longer [place] 0.9% IV 1,000 mL 75 ml/hr, Infuse Active 2017 Medical over: 13.3 hr, [place] Route: IV, Dosing Weight 65.909 kg, Total Volume: 1,000, Start date: 04/20/18 15:45:00 CDT, Duration: 30 day, Stop date: 05/20/18 15:44:00 CDT, 1.73, m2 Dextrose 50% 12.5 gm, 25 mL, No Longer [place] Syringe Route: IVP, Drug Active 2017 Medical Form: INJ, [place] Dosing Weight 65.909, kg, PRN, PRN Abnormal Lab Result, Start date: 04/20/18 15:44:00 CDT, Duration: 30 day, Stop date: 05/20/18 15:43:00 CDT Regular Insulin, 60 units) No Longer [place] Human 100 UNT/ML WASTE: F/P - Active [...] elemental calcium) Calcium Notes: WASTE: No Longer [facility] Gluconate F/P - Sink; E - Active 2018 Medica l [facility] Bin potassium Notes: (Same as: No Longer [facility] phosphate-sodium Phos-NaK) Each Active 2018 Medical phosphate 250 1.5 gm pkt has [address] mg-280 mg-160 mg 250mg oral powder for phosphorous. Mix reconstitution w/2.5oz water and stir. Magnesium Notes: WASTE: No Longer [place] Sulfate F/P - Sink; E - Active 2018 Medical [facility] Bin Magnesium Oxide Notes: (Same as: No Longer 04/20 [facility] Mag-Ox 400) Active 2018 [facility] Magnesium oxide [place] [id number] elemental magnesium Dose=____mg magnesium oxide (___mg elemental magnesium) sodium phosphate 15 mmol, 5 mL, No Longer [facility] Route: IVPB, Active 2018 Medical PRN, Dosing Center Weight 65.909, kg, PRN Abnormal Lab Result, Start date: 04/20/18 15:43:00 CDT, Duration: 30 day, Stop date: 05/20/18 15:42:00 CDT, FOR ICU USE ONLY Potassium Notes: (Same as: No Longer [facility] Chloride K-Dur 20) "Do Active 2018 Medical Not Crush" For Center patients unable to swallow tablet, dissolve in one half glass of water. Allow about 2 minutes for the tablets to disintegrate. Stir before giving to prepare slurry and administer. Please exclude Patients with feeding tube less than 14 [place] (Dobhoff, J-tube etc) and pediatric and patients. With food and full glass of water potassium Notes: (Same as: No Longer [facility] phosphate K Phosphate.) 1 Active 2017 Medic al mMol phoshate Center has 1.47 mEq potassium Infuse over 4 hours Saline Flush Notes: (Same as: No Longer [place] 0.9% BD Posiflush) Active 2018 [facility] Acetaminophen Notes: Do not No Longer [facility] exceed 4 gm/day. Active 2018 Medical (Same as: Center Tylenol) Exparel Notes: (Same as: Inactive Exparel) 2013 [facility] FOR IV [place] use Postoperative analgesia: [...] Ondansetron Notes: (Same as: Inactive Zofran) 2013 [facility] Naloxone Notes: Same as Inactive Narcan 2013 [facility] Flumazenil Notes: (Same as: Inactive Romazicon) 2013 [facility] Morphine Notes: (Same Inactive as:MORPhine 2013 [facility] ceFAZolin Notes: Same as: Inactive Ancef 2013 [facility] Ocuvite 0 Refill(s) Active 2013 [facility] Citracal Maximum 0 Refill(s) Active + D 2013 [facility] Vitamin D 0 Refill(s) Active 2013 [facility] Centrum Silver 0 Refill(s) Active Ultra Women's 2013 [facility] Raloxifene 60 mg = 1 tab, Active Hydrochloride 60 PO, Daily, # 90 2013 [facility] MG Oral Tablet tab, 0 Refill(s) [facility] [Evista] omeprazole 20 mg 20 mg = [...] Total CK 62 12 - 191 04/22 [facility] ENZYMES [facility] CHEM PANEL Phosphorus 2.1 2.5 - 4.5 04/22 [facility]2017 [facility] CHEM PANEL Magnesium 2.3 1.8 - 2.4 04/22 [facility] ELECTROLYTE AGAP 13.6 10.0 - 04/22 [facility] S 20.0 [facility] ELECTROLYTE eGFR 93 04/22 Result [facility] Comment: The Medical eGFR is Center calculated [...] 8.2 8.5 - 10.5 04/22 [place] [facility] ELECTROLYTE Creatinine 0.59 0.50 - 04/22 [facility] S Lvl 1.40 [facility] ELECTROLYTE BUN 16 7 - 22 04/22 [facility]2017 [facility] ELECTROLYTE Glucose Lvl 126 70 - 99 04/22 [facility] ELECTROLYTE CO2 23 24 - 32 04/22 [facility]2017 [facility] ELECTROLYTE Chloride Lvl 106 95 - 109 04/22 [place] as [facility] ELECTROLYTE Sodium Lvl 139 135 - 145 04/22 [place] [facility] ELECTROLYTE Potassium 3.6 3.5 - 5.1 04/22 [facility] /2017 [facility] HEMATOLOGY MPV 8.5 7.4 - 10.4 06 [facility] HEMATOLOGY Platelet 258 133 - 450 06/ [facility] HEMATOLOGY RDW 14.0 11.5 - 06 [facility] 14.5 /2017 [facility] HEMATOLOGY MCH 30.2 27.0 - 04/22 [place] 31.0 /2017 [facility] HEMATOLOGY MCHC 33.7 32.0 - 04/22 [place] 36.0 [facility] HEMATOLOGY WBC 12.6 3.7 - 10.4 04/22 [facility] HEMATOLOGY RBC 4.35 4.20 - 04/22 [place] 5.40 /2017 [facility] HEMATOLOGY Hgb 13.1 12.0 - 04/22 [place] 16.0 [facility] HEMATOLOGY Hct 39.0 36.0 - 04/22 [facility] 48.0 [facility] HEMATOLOGY MCV 89.6 80.0 - 04/22 [facility] 98.0 [facility] HEMATOLOGY Basophils # 0.1 0.0 - 0.2 04/22 [facility] HEMATOLOGY Segs-Bands # 9.7 1.5 - 8.1 04/22 [facility] as /2017 [facility] HEMATOLOGY Lymphocytes 1.5 1.0 - 5.5 04/22 [facility] # /2017 [facility] HEMATOLOGY Monocytes # 1.2 0.0 - 0.8 04/22 [facility] HEMATOLOGY Segs 77.3 45.0 - 04/22 [facility] 75.0 [facility] HEMATOLOGY Eosinophils 0.4 0.0 - 4.0 04/22 [facility] HEMATOLOGY Monocytes 9.5 2.0 - 12.0 04/22 [facility] HEMATOLOGY Basophils 0.5 0.0 - 1.0 04/22 [facility] HEMATOLOGY Lymphocytes 12.3 20.0 - 04/22 [place] 40.0 [facility] PARATHYROID Ca Ion WB 0.98 1.05 - 04/22 [place] PROFILE 1. [facility] PARATHYROID Ca Norm WB 0.99 1.05 - 04/22 [facility] PROFILE . [facility] CARDIAC CK MB Index 1.0 0.0 - 2.5 06/ [facility] ENZYMES /2017 [facility] CARDIAC CK MB 0.8 0.5 - 3.6 04/21 [facility] ENZYMES /2017 [facility] CARDIAC Troponin-T <0.010 0.000 - 06 [facility] ENZYMES 0.100 /2017 [facility] CARDIAC Troponin-I <0.02 0.00 - 04/21 [facility] ENZYMES 0.40 /2017 [facility] CARDIAC Total CK 82 12 - 191 04/21 [facility] CHEM PANEL Phosphorus 2.8 2.5 - 4.5 04/21 [facility] CHEM PANEL eGFR 98 04/21 Result [...] Sodium Lvl 142 135 - 145 04/21 [facility] CHEM PANEL Creatinine 0.50 0.50 - 04/21 [place] [facility] 1.40 [facility] CHEM PANEL BUN 13 7 - 22 04/21 [facility] CHEM PANEL Calcium Lvl 8.0 8.5 - 10.5 04/21 [place] as [facility] CHEM PANEL AGAP 13.5 10.0 - 06/05 [facility] 20.0 [facility] CHEM PANEL Potassium 3.5 3.5 - 5.1 04/21 [facility] CHEM PANEL Chloride Lvl 110 95 - 109 04/21 [facility] CHEM PANEL CO2 22 24 - 32 04/21 [facility]2017 [facility] CHEM PANEL Glucose Lvl 110 70 - 99 04/21 [facility]2017 [facility] CHEM PANEL Magnesium 1.8 1.8 - 2.4 04/21 [facility] HEMATOLOGY Eosinophils 0.1 0.0 - 0.5 06/05 [place] # /2018 [facility] Center HEMATOLOGY Monocytes # 0.7 0.0 - 0.8 06/05 [place] /2017 [facility] HEMATOLOGY Lymphocytes 0.8 1.0 - 5.5 06/05 [place] # /2017 [facility] HEMATOLOGY Segs-Bands # 9.3 1.5 - 8.1 06/05 [place] /2017 [facility] HEMATOLOGY Basophils 0.4 0.0 - 1.0 06/05 [facility] HEMATOLOGY Segs 84.2 45.0 - 06/05 [place] 75.0 /2018 [facility] HEMATOLOGY Lymphocytes 7.5 20.0 - 06/05 [place] 40.0 2018 [facility] HEMATOLOGY Eosinophils 1.2 0.0 - 4.0 06/05 [place] /2017 [facility] HEMATOLOGY Monocytes 6.7 2.0 - 12.0 06/05 [facility] HEMATOLOGY PTT 27.8 22.9 - 06/05 [place] 35.8 /2018 [facility] HEMATOLOGY PT 13.7 12.0 - 06/05 [place] 14.7 /2017 [facility] HEMATOLOGY INR 1.05 0.85 - 06/05 [place] 1.17 [facility] HEMATOLOGY MCH 29.9 27.0 - 06/05 [place] 31.0 /2018 [facility] HEMATOLOGY MCV 90.7 80.0 - 06/05 [place] 98.0 /2018 [facility] HEMATOLOGY Hct 38.3 36.0 - 06/05 [place] 48.0 /2018 [facility] HEMATOLOGY RDW 14.0 11.5 - 06/05 [place] 14.5 /2018 [facility] HEMATOLOGY MCHC 32.9 32.0 - 06/05 [place] 36.0 /2018 [facility] HEMATOLOGY MPV 8.6 7.4 - 10.4 06/05 [facility] HEMATOLOGY Platelet 219 133 - 450 06/05 [facility] HEMATOLOGY WBC 11.0 3.7 - 10.4 06/05 [facility] HEMATOLOGY Hgb 12.6 12.0 - 06/05 [place] 16.0 2018 [facility] HEMATOLOGY RBC 4.23 4.20 - 06/05 [place] 5.40 /2018 [facility] PARATHYROID Ca Norm WB 0.99 1.05 - 06/05 [place] PROFILE 1.25 /2017 [facility] PARATHYROID Ca Ion WB 1.00 1.05 - 04/21 [place] PROFILE 1. [facility] BACTERIAL - MRSA by PCR Negative 04[place] (04/20/18 4:00 PM) [facility] BLOOD BANK Antibody Negative 04/20 [facility] RESULTS Scrn (04/20/18 4:00 PM) [facility] BLOOD BANK ABO/Rh O POS 04/20 [facility] RESULTS [facility] CARDIAC CK MB Index 0.8 0.0 - 2.5 04/20 [facility] ENZYMES [facility] CARDIAC CK MB 0.8 0.5 - 3.6 04/20 [facility] ENZYMES [facility] CARDIAC Troponin-T <0.010 0.000 - 04/20 [facility] ENZYMES 0.100 [facility] CARDIAC Troponin-I <0.02 0.00 - 04/20 [facility] ENZYMES 0.40 [facility] CARDIAC Total CK 95 12 - 191 04/20 [facility] ENZYMES [facility] CARDIAC Total CK 98 12 - 191 04/20 [facility] ENZYMES [facility] CHEM PANEL Phosphorus 3.0 2.5 - 4.5 04/20 [facility] [address] [place] [address] CHEM PANEL B/C Ratio 26 6 - 25 04/20 [facility] [address] [place] [address] CHEM PANEL A/G Ratio 1.1 0.7 - 1.6 04/20 [facility] CHEM PANEL Globulin 3.4 2.7 - 4.2 04/20 [facility] CHEM PANEL AGAP 13.2 10.0 - 04/20 [facility] 20.0 [facility] CHEM PANEL eGFR 94 04/20 Result Comment: [facility] eGFR is Center calculated using the [...] PANEL AST 19 0 - 37 06/ [address] CHEM PANEL Alk Phos 51 39 - 136 04/[address] CHEM PANEL ALT 22 0 - 65 04/[address] CHEM PANEL Total 7.0 6.4 - 8.4 04/20 [facility] CHEM PANEL Calcium Lvl 8.2 8.5 - 10.5 04/20 [facility] CHEM PANEL Albumin Lvl 3.6 3.5 - 5.0 04/20 [facility]2017 [facility] CHEM PANEL CO2 24 24 - 32 04/[address] CHEM PANEL Bili Total 0.4 0.2 - 1.3 04/[address] CHEM PANEL Potassium 4.2 3.5 - 5.1 04/[address] CHEM PANEL Chloride Lvl 110 95 - 109 04/[address] CHEM PANEL Sodium Lvl 143 135 - 145 04/[address] CHEM PANEL BUN 15 7 - 22 04/[address] CHEM PANEL Creatinine 0.58 0.50 - 04/20 [facility] 1.40 /2017 [facility] CHEM PANEL Glucose Lvl 84 70 - 99 04/[address] CHEM PANEL Lactic Acid 0.9 0.5 - 2.2 04/20 [facility] CHEM PANEL Magnesium 2.1 1.8 - 2.4 04/[address] DRUG SCREEN UDS Note See Note 04/20 [facility] (04/20/18 4:00 PM) /2017 [facility] DRUG SCREEN U Phencyc Negative Negative 04/20 [place] Scr *NA* [facility] (04/20/18 4:00 PM) Center DRUG SCREEN U Opiate [place] Negative Negative 04/20 [place] *NA* [facility] (04/20/18 4:00 PM) Center DRUG SCREEN U Cannab [place] Negative Negative 04/[place] *NA* [facility] (04/20/18 4:00 PM) Center DRUG SCREEN [...] Center HEMATOLOGY MCHC 33.3 32.0 - 04/20 [facility] 36.0 /2017 [facility] HEMATOLOGY Platelet 242 133 - 450 04/20 [facility] HEMATOLOGY RDW 14.0 11.5 - 06 [facility] 14.5 [facility] HEMATOLOGY MPV 8.8 7.4 - 10.4 04/20 [facility] HEMATOLOGY MCV 90.5 80.0 - 04/20 [facility] 98.0 [facility] HEMATOLOGY Hct 38.6 36.0 - 04/20 [place] 48.0 [facility] HEMATOLOGY MCH 30.2 27.0 - 04/20 [facility] 31.0 [facility] HEMATOLOGY WBC 6.7 3.7 - 10.4 04/20 [facility] HEMATOLOGY Hgb 12.9 12.0 - 04/20 [facility] 16.0 [facility] HEMATOLOGY RBC 4.26 4.20 - 04/20 [facility] 5.40 /2017 [facility] HEMATOLOGY PT 13.4 12.0 - 04/20 [place] 14.7 [facility] HEMATOLOGY PTT 28.9 22.9 - 04/20 [place] 35.8 [facility] HEMATOLOGY INR 1.02 0.85 - 04/20 [place] 1.17 [facility] HEMATOLOGY Monocytes # 0.6 0.0 - 0.8 04/[place] /2017 [facility] HEMATOLOGY Lymphocytes 1.9 1.0 - 5.5 04/20 [place] # /2017 [facility] HEMATOLOGY Eosinophils 0.4 0.0 - 0.5 04/[place] # /2017 [facility] HEMATOLOGY Segs-Bands # 3.8 1.5 - 8.1 04/20 [facility] [place] as /2017 [facility] HEMATOLOGY Basophils 0.6 0.0 - 1.0 04/20 [facility] HEMATOLOGY Eosinophils 5.4 0.0 - 4.0 04/20 [facility] HEMATOLOGY Monocytes 9.6 2.0 - 12.0 04/20 [facility] [address] [place] [address] HEMATOLOGY Lymphocytes 28.0 20.0 - 04/20 [facility] 40.0 [facility] HEMATOLOGY Segs 56.4 45.0 - 04/20 [facility] 75.0 [facility] HEMATOLOGY TEG Interp Thrombelas 04/20 [facility] tograph [facility] show shortened value of R and increased value of Angle Alpha. 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 CPT:88696 HEMATOLOGY TEG Data See Note 04/20 [facility] (04/20/18 4:00 PM) [facility] HEMATOLOGY Coag Index 3.2 -3.0-3.0 - 04/20 [facility] 3.0 [facility] HEMATOLOGY Max Amp 69.3 50.0 - 04/20 [facility] [facility] HEMATOLOGY Angle 74.1 53.0 - 04/20 [facility] 72.0 [facility] HEMATOLOGY K-time 1.2 1.0 - 3.0 04/20 [facility] HEMATOLOGY R-time 4.1 5.0 - 10.0 04/20 [facility] HEMATOLOGY Ly30 0.0 0.0 - 7.5 04/20 [facility] HEMATOLOGY G-value 11.3 4.5 - 11.0 04/20 [facility] [address] [place] [address] PARATHYROID Ca Ion WB 1.08 1.05 - 04/20 [facility] PROFILE 1. [facility] PARATHYROID Ca Norm WB 1.06 1.05 - 04/20 [facility] PROFILE 1. [facility] CHEM PANEL Glucose Lvl 92 70 - 99 09/27 <sup>1</sup>I nterpretive [facility] Data: Adult City reference range values reflect the clinical guidelines
of the [place] [employer]. HEMATOLOGY Hgb 13.2 12.0 - 11 16.0 [facility] HEMATOLOGY Hct 39.5 36.0 - 09/27 48.0 [facility] Pathology Reports No Data Provided for This Section Diagnostic Reports Report Value Date Source Brain wo contrast CT EXAM: CT BRAIN WITHOUT CONTRAST 05/27/2018 [facility] DATE: 05/27/2018 11:22 AM CDT INDICATION: - [...] CT EXAM: CT BRAIN WITHOUT CONTRAST 05/06/2018 [facility] DATE: 05/06/2018 10:00 AM CDT INDICATION: - [...] CT EXAM: CT BRAIN WITHOUT CONTRAST 04/21/2018 [facility] DATE: 04/21/2018 3:56 AM Center INDICATION: Subdural hematoma evacuation COMPARISON: MRI brain from 04/20/2018 TECHNIQUE: Axial noncontrast imaging of the brain. Coronal and sagittal reformatted images were not generated. DLP: 1046mGy-cm FINDINGS: Imaging is degraded by patient motion at the [facility]. Intervening postoperative ch anges [...] DX EXAM: XR CHEST 1 VIEW 04/20/2018 [facility] DATE: 04/20/2018 3:38 PM CDT [...] Comments Source Systolic (mm Hg) 122 04/23/2018 [facility] Diastolic (mm Hg) 82 04/23/2018 [facility] Respitory Rate 18 04/23/2018 [facility] Temperature Oral (F) 98.2 F 04/23/2018 [facility] Heart Rate 84 04/23/2018 [facility] Heart Rate 91 04/23/2018 [facility] Respitory Rate 18 04/23/2018 [facility] Temperature Oral (F) 98.4 F 04/23/2018 [facility] Systolic (mm Hg) 122 04/23/2018 [facility] Diastolic (mm Hg) 80 04/23/2018 [facility] Temperature Oral (F) 98.5 F 04/23/2018 [facility] Heart Rate 103 04/23/2018 [facility] Respitory Rate 16 04/23/2018 [facility] Center Systolic (mm Hg) 121 04/23/2018 [facility] Diastolic (mm Hg) 80 04/23/2018 [facility] Weight 68.182 04/20/2018 [facility] BMI Calculated 27.49 04/20/2018 [facility] Height 157.48 cm 04/20/2018 [facility] Diastolic (mm Hg) 75 09/29/2014 [facility] Respitory Rate 16 09/29/2014 [facility] it Systolic (mm Hg) 124 09/29/2014 [facility] Diastolic (mm Hg) 78 09/29/2014 [facility] Respitory Rate 16 09/29/2014 [facility] ity Systolic (mm Hg) 118 09/29/2014 [facility] Diastolic (mm Hg) 73 09/29/2014 [facility] Systolic (mm Hg) 122 09/29/2014 [facility] Respitory Rate 16 09/29/2014 [facility] ity Heart Rate 74 09/29/2014 [facility] y Height 160.02 cm 09/27/2014 [facility] y Weight 65.909 09/27/2014 [facility] y BMI Calculated 25.74 09/27/2014 [facility] ity Encounters Location Location Encounter Encounter Reason Attending ADM DC Stat us Source Details Type Number For Provider Date Date Visit [facility] OBS [id number] Rolly 09/29 09/29 [facility] [place] /2013 [facility] In[facility] [id number] [place] 04/20 04/23 Leidy Olson [place] [facility] [id number] 04/23 04/25 Misc her Neurosurger Message /2017 [facility] Phone [id number] 05/01 05/03 Misc her Neurosurger Message [facility] Diag [id number] Luc 05/06 05/07 [facility] [place] [facility] [id number] TRAUMA 05/07 [facility] Outpatient [id number] Luc 05/07 05/08 [facility] Cristy [facility] y [facility] Phone [id number] 05/13 05/15 Misc her Neurosurger Message /2017 [facility] Phone [id number] 05/18 05/20 Misc her Neurosurger Message [facility] Diag [id number] Luc 05/27 05/28 [facility]NA Phone [id number] 06/02 06/04 Misc her Neurosurger Message /2017 [facility]patient [id number] TRAUMA 06/04 [facility] Ambulatory [id number] TRAUMA 06/04 06/04 [facility]ger Pre-Reg VISIT [facility] Phone [id number] 06/08 06/10 Misc her Neurosurger Message /2017 [facility] Phone [id number] 06/08 06/10 Misc her Neurosurger Message /2017 [facility] Phone [id number] 07/10 07/12 Mis her Neurosurger Message /2017 [facility] Procedures Procedure Code Date Perfomer Comments Source Breast augmentation [id number] 11/17/1985 [facility], CAROL Olson,[facility] CE - Cataract [id number] [facility] extraction Neuro,[facility], CAROL Olson,[facility] Laparoscopic [id number] [facility] adhesiolysis Neuro,[facility], CAROL Olson,[facility] Laparotomy [id number] [facility], CAROL Olson,[facility] Sling procedure of [id number] Leonardache r bladder neck Neuro,[facility], CAROL Olson,[facility] Assessment and Plan No Data Provided for This Section Plan of Care No Data Provided for This Section Social History Social History Date Source Social History TypeResponse 09/27/2014 [facility] Alcohol Current Smoking Status Never smoker; Exposure to Tobacco Smoke None; Cigarette Smoking Last 365 Days No; Reg Smoking Cessation Counseling No entered on: 04/20/18 Social History TypeResponse 09/27/2014 [facility] Alcohol Current Smoking Status Never smoker; Exposure to Tobacco Smoke None; Cigarette Smoking Last 365 Days No; Reg Smoking Cessation Counseling No entered on: 04/20/18 Social History TypeResponse 09/27/2014 CAR[facility] Alcohol Current Smoking Status Never smoker; Exposure to Tobacco Smoke None; Cigarette Smoking Last 365 Days No; Reg Smoking Cessation Counseling No entered on: 04/20/18 Social History TypeResponse 09/27/2014 [facility] Alcohol Use: Current Smoking Status Never smoker, Exposure to Tobacco Smoke None, Cigarette Smoking Last 365 Days No, Reg Smoking Cessation Counseling No Family History No Data Provided for This Section Advance Directives No Data Provided for This Section Functional Status No Data Provided for This Section
--- NOTE | 2020-07-02 07:38 | RAD REPORT ---
EXAM DESCRIPTION: CT - Head C Spine Mpr Wo Con - 07/02/2020 7:11 am CLINICAL HISTORY: Head and neck injury status post fall. Head and neck pain COMPARISON: 2017 TECHNIQUE: Computed axial tomography of the head and cervical spine was obtained. Sagittal and coronal reconstruction was performed. All CT scans are performed using dose optimization technique as appropriate and may include automated exposure control or mA/KV adjustment according to patient size. FINDINGS: Scalp laceration. Right craniotomy An intracranial bleed is not seen. The ventricles are normal in caliber. An extra-axial fluid collect ion is not noted.Fluid within the visualized sinuses and mastoids is not seen A cervical fracture is not visualized. No dislocation is noted. IMPRESSION: No acute intracranial abnormality is seen. A cervical fracture is not visualized. If the patient continues to have symptoms to suggest intracra nial /spinal cord pathology then MRI would be recommended
--- NOTE | 2020-07-02 08:04 | EDPHYS ---
Physician Documentation [facility] Name: Tennille Rey Age: 74 yrs Sex: Female : 1945 Arrival Date: 07/02/2020 Time: 06:27 Bed 7 Private MD: ED Physician Robbin Larry HPI: 07/02 06:40 This 74 yrs old Female presents to ER via EMS with complaints of Fall Injury. pm1 06:40 Details of fall: The patient fell from seated position, walker. Onset: The pm1 symptoms/episode began/occurred just prior to arrival. Associated injuries: The patient sustained injury to the head, laceration, of the right side of the back of head, headache to forehead. Severity of symptoms: in the emergency department the symptoms have improved, bleeding controlled with gauze and pressure dressing by EMS. Patient was sitting on her walker and scooted back. Her walker legs scooted over the garage step and she fell backwards hitting the back of her head on the floor. No LOC. No N/V. Laceration to right side back of head and mild headache to forehead. Historical: - Allergies: 06:30 Codeine; jb4 - Home Meds: 06:30 atorvastatin 10 mg Oral tab [Active]; Elavil [Active]; montelukast Oral [Active]; jb4 omeprazole 40 mg Oral cpDR [Active]; raloxifene 60 mg Oral tab [Active]; Amitriptyline Oral [Active]; fentanyl transdermal Topical [Active]; Valium Oral [Active]; - PMHx: 06:30 High Cholesterol; jb4 - PSHx: 06:30 None; jb4 - Immunization history:: Adult Immunizations up to date. - Immunization history: Last tetanus immunization: - up to date. - Social history:: Smoking status: Patient denies any tobacco usage or history of. Patient/guardian denies using alcohol, street drugs. ROS: 06:40 Constitutional: Negative for fever, chills, and weight loss, Neck: Negative for injury, pm1 pain, and swelling, Cardiovascular: Negative for chest pain, palpitations, and edema, Respiratory: Negative for shortness of breath, cough, wheezing, and pleuritic chest pain, Abdomen/GI: Negative for abdominal pain, nausea, vomiting, diarrhea, and constipation, Back: Negative for injury and pain, MS/Extremity: Negative for injury and deformity. 06:40 Skin: Positive for laceration(s), of the right side of the back of head. 06:40 Neuro: Positive for headache, Negative for dizziness, loss of consciousness, numbness, tingling, weakness. Exam: 08:00 Constitutional: This is a well developed, well nourished patient who is awake, alert, pm1 and in no acute distress. 08:00 Eyes: Pupils equal round and reactive to light, extra-ocular motions intact. Lids and lashes normal. Conjunctiva and sclera are non-icteric and not injected. Cornea within normal limits. Periorbital areas with no swelling, redness, or edema. ENT: Nares patent. No nasal discharge, no septal abnormalities noted. Tympanic membranes are normal and external auditory canals are clear. Oropharynx with no redness, swelling, or masses, exudates, or evidence of obstruction, uvula midline. Mucous membranes moist. Neck: Trachea midline, no thyromegaly or masses palpated, and no cervical lymphadenopathy. Supple, full range of motion without nuchal rigidity, or vertebral point tenderness. No Meningismus. Chest/axilla: Normal chest wall appearance and motion. Nontender with no deformity. No lesions are appreciated. 08:00 Back: No spinal tenderness. No costovertebral tenderness. Full range of motion. Skin: Warm, dry with normal turgor. Normal color with no rashes, no lesions, and no evidence of cellulitis. 08:00 Head/face: Noted is no obvious of injury or deformity except a laceration(s), that is linear, 2 cm(s), of the right side of the back of head. 08:00 Cardiovascular: Exam negative for acute changes, Rate: normal, Rhythm: regular, Pulses: no pulse deficits are appreciated. 08:00 Respiratory: Exam negative for acute changes, respiratory distress, shortness of breath. 08:00 Abdomen/GI: Inspection: abdomen appears normal, Palpation: abdomen is soft and non-tender, in all quadrants. 08:00 Musculoskeletal/extremity: Exam is negative for acute changes, decreased range of motion, deformity, injury, pain, tenderness. 08:00 Neuro: Exam negative for acute changes, Orientation: is normal, Mentation: is normal, Motor: is normal, moves all fours. Vital Signs: 06:30 BP 127 / 79; Pulse 102; Resp 16; Temp 99.0(O); Pulse Ox 96% on R/A; Weight 65.77 kg jb4 (R); Height 5 ft. 2 in. (157.48 cm); Pain 3/10; 07:30 BP 118 / 78; Pulse 87; Resp 18; Pulse Ox 99% on R/A; ph 08:42 BP 122 / 76; Pulse 79; Resp 16; Temp 97.8; Pulse Ox 99% on R/A; ph 06:30 Body Mass Index 26.52 (65.77 kg, 157.48 cm) jb4 [place] Coma Score: 06:30 Eye Response: spontaneous(4). Verbal Response: oriented(5). Motor Response: obeys jb4 commands(6). Total: 15. 07:30 Eye Response: spontaneous(4). Verbal Response: oriented(5). Motor Response: obeys ph commands(6). Total: 15. 08:42 Eye Response: spontaneous(4). Verbal Response: oriented(5). Motor Response: obeys ph commands(6). Total: 15. Trauma Score (Adult): 06:30 Eye Response: spontaneous(1); Verbal Response: oriented(1); Motor Response: obeys jb4 commands(2); Systolic BP: > 89 mm Hg(4); Respiratory Rate: 10 to 29 per min(4); [place] Score: 15; Trauma Score: 12 07:30 Eye Response: spontaneous(1); Verbal Response: oriented(1); Motor Response: obeys ph commands(2); Systolic BP: > 89 mm Hg(4); Respiratory Rate: 10 to 29 per min(4); [place] Score: 15; Trauma Score: 12 08:42 Eye Response: spontaneous(1); Verbal Response: oriented(1); Motor Response: obeys ph commands(2); Systolic BP: > 89 mm Hg(4); Respiratory Rate: 10 to 29 per min(4); [place] Score: 15; Trauma Score: 12 Laceration: 08:01 Wound Repair of 2cm ( 0.8in ) subcutaneous laceration to right parietal area. Linear pm1 shaped.. Distal neuro/vascular/tendon intact. Wound prep: Extensive cleansing with hibiclenz by supply chain technician, Wound irrigation with saline by supply chain technician, Wound explored extensively, Copious irrigation. Skin closed with 4 1-0 Thuy using simple sutures and sterile technique. Dressed with 4x4's. Patient tolerated well. MDM: 06:28 Patient medically screened. pm1 08:01 Data reviewed: vital signs. Data interpreted: Pulse oximetry: on room air is 96 %. pm1 Interpretation: normal. 08:01 Counseling: I had a detailed discussion with the patient and/or guardian regarding: the pm1 historical points, exam findings, and any diagnostic results supporting the discharge/admit diagnosis, radiology results, the need for outpatient follow up, a family practitioner, Staple removal in 10-14 days, to return to the emergency department if symptoms worsen or persist or if there are any questions or concerns that arise at home. 07/02 06:40 Order name: CT Head C Spine; Complete Time: 07:39 pm1 Administered Medications: No medications were administered Disposition: 07/03 06:38 Co-signature as Attending Physician, Robbin Larry MD I agree with the assessment and tw4 plan of care. Disposition: 07/02/20 08:04 Discharged to Home. Impression: Laceration without foreign body of scalp, Fall from chair, Unspecified injury of head. - Condition is Stable. - Discharge Instructions: Head Injury, Adult, Fall Prevention in the Home, Stitches, Thuy, or Adhesive Wound Closure. - Medication Reconciliation Form, Thank You Letter, Antibiotic Education, Prescription Opioid Use form. - Follow up: Emergency Department; When: As needed; Reason: Worsening of condition. Follow up: Private Physician; When: 10 - 14 days; Reason: Recheck today's complaints, Continuance of care, Staple/Suture removal, Re-evaluation by your physician. - Problem is new. - Symptoms have improved. Signatures: Dispatcher [employer] EDMS Rolly Chandra, ELECTRIC VEHICLE ELECTRICIAN ELECTRIC VEHICLE ELECTRICIAN pm1 Dada Bates, GUSTAVO RN jb4 Robbin Larry MD MD tw4 Koki Tamayo kj1 Corrections: (The following items were deleted from the chart) 07/02 08:44 08:04 07/02/2020 08:04 Discharged to Home. Impression: Laceration without foreign body kj1 of scalpFall from chair; Unspecified injury of head. Condition is Stable. Forms are Medication Reconciliation Form, Thank You Letter, Antibiotic Education, Prescription Opioid Use. Follow up: Emergency Department; When: As needed; Reason: Worsening of condition. Follow up: Private Physician; When: 10 - 14 days; Reason: Recheck today's complaints, Continuance of care, Staple/Suture removal, Re-evaluation by your physician. Problem is new. Symptoms have improved. pm1 08:45 06:40 Patient was sitting on her walker and scooted back. Her walker legs scooted over pm1 the garage step and she fell backwards hitting the back of her head on the floor. No LOC. No N/V. Laceration to right parietal area and mild headache to forehead. pm1
--- NOTE | 2020-07-02 08:04 | ER ---
Nurse's Notes [facility] Name: Tennille Rey Age: 74 yrs Sex: Female : 1945 Arrival Date: 07/02/2020 Time: 06:27 Bed 7 Private MD: Diagnosis: Fall from chair;Laceration without foreign body of scalp;Unspecified injury of head Presentation: 07/02 06:30 Chief complaint: EMS states: PT was using her walker and tried to go up and incline, jb4 denies LOC or blood thinners. Has a laceration to the back of the head. Care prior to arrival: IV initiated. 20 GA, in the left antecubital area. Mechanism of Injury: Fall from standing position. Trauma event details: Injury occurred in the [facility]. 06:30 Acuity: ADRIÁN 3 jb4 06:30 Method Of Arrival: EMS: [facility] jb4 06:30 Coronavirus screen: At this time, the client does not indicate any symptoms associated jb4 with coronavirus-19. Ebola Screen: No symptoms or risks identified at this time. Initial Sepsis Screen: Does the patient meet any 2 criteria? No. Patient's initial sepsis screen is negative. Does the patient have a suspected source of infection? No. Patient's initial sepsis screen is negative. Risk Assessment: Do you want to hurt yourself or someone else? Patient reports no desire to harm self or others. Onset of symptoms was July 02, 2020. Trauma Activation: Alert Physician: ED Physician; Name: Prateek; Notified At: 06:30; Arrived At: 06:30 Physician: General Surgeon; Name: ; Notified At: 06:30; Arrived At: Physician: Radiology; Name: Robina; Notified At: 06:30; Arrived At: 06:30 Physician: Respiratory; Name: ; Notified At: 06:30; Arrived At: Physician: Lab; Name: ; Notified At: 06:30; Arrived At: Historical: - Allergies: 06:30 Codeine; jb4 - Home Meds: 06:30 atorvastatin 10 mg Oral tab [Active]; Elavil [Active]; montelukast Oral [Active]; jb4 omeprazole 40 mg Oral cpDR [Active]; raloxifene 60 mg Oral tab [Active]; Amitriptyline Oral [Active]; fentanyl transdermal Topical [Active]; Valium Oral [Active]; - PMHx: 06:30 High Cholesterol; jb4 - PSHx: 06:30 None; jb4 - Immunization history:: Adult Immunizations up to date. - Immunization history: Last tetanus immunization: - up to date. - Social history:: Smoking status: Patient denies any tobacco usage or history of. Patient/guardian denies using alcohol, street drugs. Screenin:30 Abuse screen: Denies threats or abuse. Nutritional screening: No deficits noted. Fall jb4 risk At risk due to injury, age. Exposure risk/Travel Screening:. Primary Survey: 06:30 NO uncontrolled hemorrhage observed. A: Airway: patent, No supplemental oxygen in use jb4 on arrival. Oral cavity: clear, gag reflex present. Breathing/Chest: Respiratory pattern: regular, Respiratory effort: spontaneous, unlabored, Chest inspection: symmetrical rise and fall of the chest. Circulation: Skin color: pink, Skin temperature: warm, dry. Disability Alert. Exposure/Environment: All clothing and personal items were removed. Forensic evidence collection is not deemed to be indicated at this time. Items placed in patient belonging bag. 08:43 Reassessment Airway Airway Breathing/Chest Respiratory pattern Regular Respiratory ph effort Spontaneous Unlabored. Secondary Survey: 06:30 HEENT: Head Other Laceration to back of the scalp. Face No injury/deformity Eyes: No jb4 injury or deformity noted. Ears: clear bilaterally. Nose: clear to bilateral nares. Throat: No injury or deformity noted. is clear with gag reflex present. Gastrointestinal: No deficits noted. : No deficits noted. No signs and/or symptoms were reported regarding the genitourinary system. Musculoskeletal: No deficits noted. No signs and/or symptoms reported regarding the musculoskeletal system. Injury Description: Laceration sustained to scalp is not bleeding, was sustained 30-60 minutes ago. Assessment: 06:30 General: Appears in no apparent distress. comfortable, Behavior is calm, cooperative, jb4 appropriate for age. Pain: Complains of pain in headache Pain does not radiate. Pain currently is 3 out of 10 on a pain scale. Quality of pain is described as aching, Pain began 30 min ago. Neuro: Level of Consciousness is awake, alert, obeys commands, Oriented to person, place, time, situation. Cardiovascular: Patient's skin is warm and dry. Respiratory: Airway is patent Respiratory effort is even, unlabored, Respiratory pattern is regular, symmetrical. GI: No signs and/or symptoms were reported involving the gastrointestinal system. : No signs and/or symptoms were reported regarding the genitourinary system. EENT: No signs and/or symptoms were reported regarding the EENT system. Derm: Skin is pink, warm \T\ dry. Musculoskeletal: Circulation, motion, and sensation intact. Range of motion: intact in all extremities. Injury Description: Laceration sustained to scalp is not bleeding, was sustained 30-60 minutes ago. moderate bleeding noted at this time. 08:40 Reassessment: Patient appears in no apparent distress at this time. Patient and/or ph family updated on plan of care and expected duration. Pain level reassessed. Patient is alert, oriented x 3, equal unlabored respirations, skin warm/dry/pink. Pt d/c home w/ family, instructed to have jonny removed in 10-14 days. Vital Signs: 06:30 BP 127 / 79; Pulse 102; Resp 16; Temp 99.0(O); Pulse Ox 96% on R/A; Weight 65.77 kg jb4 (R); Height 5 ft. 2 in. (157.48 cm); Pain 3/10; 07:30 BP 118 / 78; Pulse 87; Resp 18; Pulse Ox 99% on R/A; ph 08:42 BP 122 / 76; Pulse 79; Resp 16; Temp 97.8; Pulse Ox 99% on R/A; ph 06:30 Body Mass Index 26.52 (65.77 kg, 157.48 cm) jb4 Dana Coma Score: 06:30 Eye Response: spontaneous(4). Verbal Response: oriented(5). Motor Response: obeys jb4 commands(6). Total: 15. 07:30 Eye Response: spontaneous(4). Verbal Response: oriented(5). Motor Response: obeys ph commands(6). Total: 15. 08:42 Eye Response: spontaneous(4). Verbal Response: oriented(5). Motor Response: obeys ph commands(6). Total: 15. Trauma Score (Adult): 06:30 Eye Response: spontaneous(1); Verbal Response: oriented(1); Motor Response: obeys jb4 commands(2); Systolic BP: > 89 mm Hg(4); Respiratory Rate: 10 to 29 per min(4); Dana Score: 15; Trauma Score: 12 07:30 Eye Response: spontaneous(1); Verbal Response: oriented(1); Motor Response: obeys ph commands(2); Systolic BP: > 89 mm Hg(4); Respiratory Rate: 10 to 29 per min(4); Chuy Score: 15; Trauma Score: 12 08:42 Eye Response: spontaneous(1); Verbal Response: oriented(1); Motor Response: obeys ph commands(2); Systolic BP: > 89 mm Hg(4); Respiratory Rate: 10 to 29 per min(4); Dana Score: 15; Trauma Score: 12 ED Course: 06:27 Patient arrived in ED. cl3 06:28 Rolly Chandra, KIM is PHCP. pm1 06:28 Robbin Larry MD is Attending Physician. pm1 06:30 Patient has correct armband on for positive identification. Bed in low position. Call jb4 light in reach. Side rails up X 1. 06:30 Arm band placed on right wrist. jb4 06:30 Patient maintains SpO2 saturation greater than 95% on room air. Thermoregulation: warm jb4 blanket given to patient. 06:32 Triage completed. jb4 07:11 CT Head C Spine In Process Unspecified. EDMS 07:14 Sonal Alarcon, RN is Primary Nurse. ph 07:30 Daughter Veronica called to leave her contact information to please call with any eb updates , questions or concerns we may have. [phone]. 08:15 Assist provider with laceration repair on right side of the back of head that was ph between 2.6 to 7.5 cm using jonny. Set up tray. Performed by Rolly Chandra WORSHIP LEADER Dressed with Kerlix, Patient tolerated well. Administered Medications: No medications were administered Intake: 08:41 PO: 0ml; Total: 0ml. ph Output: 08:41 Urine: 0ml; Total: 0ml. ph Outcome: 08:04 Discharge ordered by . pm1 08:44 Patient left the ED. kj1 Signatures: Dispatcher MedHo Sonal Fam, RN RN ph Rolly Chandra, KIM WORSHIP LEADER pm1 Dada Bates RN RN jb4 Yue Ross Kandis kj1 Vaibhav Marshall cl3
[2020-07-02 08:50] VITALS: O2SAT 99
[2020-07-02 08:51] VITALS: BP 122/76; TEMP 97.8
== END 2020-07-02 08:44 | disposition home or self-care (01) ==
LOC: ER 06:26
PROC: 0JQ00ZZ Repair Scalp Subcutaneous Tissue and Fascia, Open Approach (ICD-10-PCS; principal; 2020-07-02)
DX: S01.01XA Laceration without foreign body of scalp, initial encounter (principal); E78.00 Pure hypercholesterolemia, unspecified; W07.XXXA Fall from chair, initial encounter; Y93.89 Activity, other specified; Y92.9 Unspecified place or not applicable; Z88.5 Allergy status to narcotic agent
CPT/HCPCS: 70450; 72125; 99284; G0390